=== PATIENT | female | born 1935 | race Caucasian/White ===

== ENCOUNTER → 2016-06-18 | Outpatient (CLI) | payer MEDICARE, OTHER ==
[~2016-06-18] MED LIST: ASPIRIN325 MG PO; BENAZEPRIL HCL10 MG ORAL; BENAZEPRIL HCL10 MG PO; CARDIAZEM CD240 MG ORAL; CARDIZEM CD180 MG ORAL; DIGOXIN125 MCG PO; DILTIAZEM HCL120 MG PO; FUROSEMIDE20 M1 PO; IBUPROFEN600 MG ORAL; JANUVIA100 MG ORAL; LIPITOR10 MG ORAL; METFORMIN HCL500 M1 ORAL; METOPROLOL SUC100 MG PO; METOPROLOL TART50 M1 ORAL; METOPROLOL TART50 MG ORAL; NKM; NORCO 10/3251 EA ORAL; POTASSIUM CHLO10 ME2 PO; PREDNISONE20 MG ORAL; PRILOSEC20 MG PO; TYLENOL325 MG ORAL; VALIUM5 MG ORAL; VICODIN 5-5001 EACH PO
[2016-06-18 12:33] LABS: APPEARANCE,URINE SLIGHTLY CLOUDY; KETONES,URINE NEGATIVE (NEGATIVE); LEUKOCYTE ESTERASE ,URINE 1+ (NEGATIVE); NITRITE,URINE NEGATIVE (NEGATIVE); PH,URINE 6 (4.5-8.0); PROTEIN,URINE NEGATIVE (NEGATIVE); UROBILINOGEN,URINE NORMAL MG/DL (0.0-1.0)
[2016-06-18 12:34] LABS: ALANINE AMINOTRANSFERASE 8 U/L (3-33); ALBUMIN/GLOBULIN RATIO 1.2 (1.0-2.7); ANION GAP 14 (5-15); ASPARTATE AMINO TRANSFERASE 16 U/L (5-40); CALCIUM 9.6 mg/dL (8.6-10.2); CARBON DIOXIDE 27 mEQ/L (20-30); CHLORIDE 98 mEQ/L (98-107); CHOLESTEROL 143 mg/dL (< 200); CHOLESTEROL/HDL RATIO 2.8 (3.3-4.4); CREATININE 0.7 mg/dL (0.5-0.9); HEMOLYSIS 22; LDL CHOLESTEROL (CALC.) 71 mg/dL (60-99); POTASSIUM 4.4 mEQ/L (3.4-4.9); SODIUM 139 mEQ/L (135-145); TOTAL PROTEIN 7.8 g/dL (6.6-8.7)
[2016-06-18 12:48] LABS: BASOPHILS % (AUTO) 0.9 % (0.0-2.0); EOSINOPHILS % (AUTO) 0.7 % (0.0-3.0); LYMPHOCYTES % (AUTO) 23.5 % (20.0-45.0); MEAN CORPUSCULAR HEMOGLOBIN 31.6 PG (27.0-31.0); MEAN CORPUSCULAR HGB CONC 34.7 G/DL (32.0-36.0); MEAN CORPUSCULAR VOLUME 91 FL (80-99); MEAN PLATELET VOLUME 7.6 FL (6.5-10.1); MONOCYTES % (AUTO) 9.3 % (1.0-10.0); NEUTROPHILS % (AUTO) 65.6 % (45.0-75.0); PLATELET COUNT 235 K/UL (150-450); RED BLOOD COUNT 4.52 M/UL (4.20-5.40); RED CELL DISTRIBUTION WIDTH 12.1 % (11.6-14.8); WHITE BLOOD COUNT 7.4 K/UL (4.8-10.8)
[2016-06-18 13:04] LABS: BACTERIA,URINE FEW /HPF; HEMOGLOBIN A1C 5.4 % (< 6.0); SQUAMOUS EPITHELIAL CELL,UR FEW /LPF (NONE/OCC)
== END | disposition home or self-care (01) ==
LOC: LAB 11:38
DX: E11.9 Type 2 diabetes mellitus without complications (principal); M79.7 Fibromyalgia
CPT/HCPCS: 36415; 80053; 80061; 81003; 83036; 84443; 85025

== ENCOUNTER 2016-08-30 10:35 | Emergency (ER) | payer MEDICARE, OTHER ==
[~2016-08-30] VITALS: Ht 165.1 cm; Wt 71.7 kg
[~2016-08-30 10:35] MED LIST changes: -TYLENOL325 MG ORAL
--- NOTE | 2016-08-30 11:05 | Emergency Room Report ---
History of Present Illness General Chief Complaint: Multiple Trauma/Fall Source: Patient, Medical Record Present Illness HPI Patient presents with complaints of right lower rib pain right facial discomfort And right forearm pain after a fall this morning patient reports that she was using the commode recently she has been having pain to her right leg And essentially her leg gave out and patient fell tried to grab the walker patient hit the right arm Denies any loss of consciousness denies any dizziness Denies any mid chest pain Denies any shortness of breath Allergies: Coded Allergies: WARFARIN (Unverified Adverse Reaction, Unknown, 11/28/13) Patient History Past Medical History: see triage record Pertinent Family History: none Reviewed Nursing Documentation: PMH: Agreed, PSxH: Agreed Nursing Documentation-PMH Hx Cardiac Problems: Yes Hx Hypertension: Yes Hx Pacemaker: No Hx Asthma: Yes Hx COPD: No Hx Diabetes: Yes Hx Cancer: No Hx Gastrointestinal Problems: No Hx Neurological Problems: Yes - Sciatic nerve Hx Cerebrovascular Accident: No Hx Seizures: No Review of Systems All Other Systems: negative except mentioned in HPI Physical Exam Vital Signs Date Time Temp Pulse Resp B/P Pulse Ox O2 Delivery O2 Flow Rate FiO2 08/30/16 10:45 97.9 80 16 104/65 99 Room Air Sp02 EP Interpretation: reviewed, normal General Appearance: well appearing, no apparent distress Head: normocephalic, atraumatic Eyes: bilateral eye EOMI, bilateral eye PERRL ENT: hearing grossly normal, normal pharynx Neck: supple Respiratory: lungs clear Cardiovascular #1: no edema, irregularly irregular Gastrointestinal: soft, no mass Musculoskeletal: other - Hematoma and bruising pulverize but the right forearm , tender on palpation right mid rib cage Neurologic: alert, oriented x3, responsive, 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 III-XII nml as tested Skin: other - As above Lymphatic: no adenopathy Medical Decision Making Diagnostic Impression: Primary Impression: Multiple injuries due to trauma Additional Impression: Hematoma ER Course Multiple differentials considered Patient is awake and alert Imaging study does not show any acute fractures Patient continues to do well hemodynamically baseline blood work were also appropriate and the patient is stable for close outpatient followup Labs Test 08/30/16 11:10 White Blood Count 7.2 K/UL (4.8-10.8) Red Blood Count 4.50 M/UL (4.20-5.40) Hemoglobin 13.8 G/DL (12.0-16.0) Hematocrit 41.6 % (37.0-47.0) Mean Corpuscular Volume 92 FL (80-99) Mean Corpuscular Hemoglobin 30.6 PG (27.0-31.0) Mean Corpuscular Hemoglobin Concent 33.2 G/DL (32.0-36.0) Red Cell Distribution Width 12.5 % (11.6-14.8) Platelet Count 199 K/UL (150-450) Mean Platelet Volume 8.0 FL (6.5-10.1) Neutrophils (%) (Auto) 67.2 % (45.0-75.0) Lymphocytes (%) (Auto) 23.1 % (20.0-45.0) Monocytes (%) (Auto) 8.0 % (1.0-10.0) Eosinophils (%) (Auto) 0.7 % (0.0-3.0) Basophils (%) (Auto) 1.1 % (0.0-2.0) Sodium Level 141 mEQ/L (135-145) Potassium Level 4.1 mEQ/L (3.4-4.9) Chloride Level 98 mEQ/L (98-107) Carbon Dioxide Level 27 mEQ/L (20-30) Anion Gap 16 (5-15) Blood Urea Nitrogen 16 mg/dL (7-23) Creatinine 0.7 mg/dL (0.5-0.9) Estimat Glomerular Filtration Rate mL/min (>60) Glucose Level 78 mg/dL (74-106) Calcium Level 9.4 mg/dL (8.6-10.2) EKG Diagnostic Results Rate: normal Rhythm: other - afib ST Segments: other - nonspecific st t wave changes Rhythm Strip Diag. Results EP Interpretation: yes Rate: 77 Rhythm: no PVC's, no ectopy, other - afib Other X-Ray Diagnostic Results Other X-Ray Diagnostic Results : EP Interpretation: Yes Findings: no fractures, no dislocation, other - soft tissue changes Number of Views: 2 - right forearm CT/MRI/US Diagnostic Results CT/MRI/US Diagnostic Results : Impression CT chestImpression: No acute abnormality. Specifically no evidence of significant thoracic trauma Nonspecific very faint pulmonary parenchymal groundglass opacities. 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 08/30/16 Additional Instructions: Patient is provided with the discharge instructions notified to follow up with primary doctor in the next 2-3 days otherwise return to the er with any worsening symptoms. Please note that this report is being documented using S[employer] technology. This can lead to erroneous entry secondary to incorrect interpretation by the dictating instrument. MAGNOLIA DESAI D.O. Aug 30, 2016 11:05
[2016-08-30 11:30] VITALS: BP 111/63
[2016-08-30 11:31] LABS: BASOPHILS % (AUTO) 1.1 % (0.0-2.0); EOSINOPHILS % (AUTO) 0.7 % (0.0-3.0); LYMPHOCYTES % (AUTO) 23.1 % (20.0-45.0); MEAN CORPUSCULAR HEMOGLOBIN 30.6 PG (27.0-31.0); MEAN CORPUSCULAR HGB CONC 33.2 G/DL (32.0-36.0); MEAN CORPUSCULAR VOLUME 92 FL (80-99); NEUTROPHILS % (AUTO) 67.2 % (45.0-75.0); PLATELET COUNT 199 K/UL (150-450); RED CELL DISTRIBUTION WIDTH 12.5 % (11.6-14.8); WHITE BLOOD COUNT 7.2 K/UL (4.8-10.8)
[2016-08-30 11:45] LABS: ANION GAP 16 (5-15); CALCIUM 9.4 mg/dL (8.6-10.2); CARBON DIOXIDE 27 mEQ/L (20-30); CHLORIDE 98 mEQ/L (98-107); CREATININE 0.7 mg/dL (0.5-0.9); HEMOLYSIS 13; POTASSIUM 4.1 mEQ/L (3.4-4.9); SODIUM 141 mEQ/L (135-145)
--- NOTE | 2016-08-30 11:59 | Diagnostic Imaging Report ---
Indications: PAIN Technique: Two views of the right forearm Comparison: None Findings: No acute fractures. No dislocations. No radiopaque foreign bodies Impression: Negative
--- NOTE | 2016-08-30 12:13 | Diagnostic Imaging Report ---
Clinical Indication: PAIN, right lower lobe rib pain after fall this morning Technique: Spiral acquisitions obtained through the chest. No IV contrast utilized, referring physician request. Multiplanar reconstructions generated. Total dose length product T10 mGycm. CTDIvol(s) 23 mGy Comparison: None Findings:No acute fractures are demonstrated. There is no evidence of significant soft tissue contusion. Lungs demonstrate minimal biapical parenchymal scarring. There is very faint groundglass opacity in a geographic distribution. Some atelectasis or scarring is seen in the inferior lingula. Lungs and pleural spaces otherwise clear. The aorta is somewhat ectatic, particularly in the region of the aortic arch, where the distal aortic arch is 38 mm in diameter, bordering on the not quite aneurysmal. There is a prosthetic device within the left atrial appendage. There is a left chest biventricular pacemaker. The heart is mildly enlarged. No pericardial effusion. The main and right and left pulmonary arteries are somewhat ectatic but not frankly dilated. There are granulomatous mediastinal lymph node calcifications. No mediastinal or hilar mass or adenopathy. The thyroid is somewhat prominent. No axillary or chest wall mass or adenopathy. Some macrocalcifications are seen in the right breast. The included upper abdominal viscera are unremarkable. Impression: No acute abnormality. Specifically no evidence of significant thoracic trauma Nonspecific very faint pulmonary parenchymal groundglass opacities. 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
[2016-08-30 13:35] VITALS: BP 115/66
[2016-08-30] MEDS ORDERED: TYLENOL325 MG ORAL (13:38)
[2016-08-30 14:25] VITALS: BP_SYST 105; BP_SYST 115; BP_DIAS 49; BP_DIAS 66
== END 2016-08-30 14:25 | disposition home or self-care (01) ==
LOC: EMR 11:33
DX: R07.81 Pleurodynia (principal); S50.11XA Contusion of right forearm, initial encounter; W07.XXXA Fall from chair, initial encounter; I10 Essential (primary) hypertension; Y92.89 Other specified places as the place of occurrence of the external cause; E11.9 Type 2 diabetes mellitus without complications; Z88.8 Allergy status to other drugs, medicaments and biological substances; J45.909 Unspecified asthma, uncomplicated
CPT/HCPCS: 36415; 71250; 80048; 85025; 93005; 99284

== ENCOUNTER 2017-02-28 10:53 | Outpatient (CLI) | payer MEDICARE, OTHER ==
[~2017-02-28 10:53] MED LIST changes: +TYLENOL325 MG ORAL
--- NOTE | 2017-02-28 11:47 | Diagnostic Imaging Report ---
Indication: COUGH Technique: 2 views of the chest Comparison: 09/06/2015 Findings: There is mild central bronchial wall thickening, stable, probably on the basis of senescent change or chronic bronchitis changes. No acute infiltrates, effusions, or congestion. Pleural spaces are clear. There is a left chest biventricular AICD now present. The heart size is normal. Aorta is elongated tortuous and calcified. There are degenerative changes of the thoracic spine Impression: No acute process findings as noted
== END 2017-02-28 12:53 | disposition home or self-care (01) ==
LOC: CAR 10:53
DX: Z01.818 Encounter for other preprocedural examination (principal); R05 Cough; Z95.810 Presence of automatic (implantable) cardiac defibrillator
CPT/HCPCS: 71020

== ENCOUNTER → 2017-05-02 | Outpatient (RCR) | payer MEDICARE, OTHER | END | disposition home or self-care (01) | LOC: PTY 04-19 08:30 | DX: M62.81 Muscle weakness (generalized) (principal); G60.3 Idiopathic progressive neuropathy; I10 Essential (primary) hypertension; Z95.0 Presence of cardiac pacemaker; M19.90 Unspecified osteoarthritis, unspecified site; E11.40 Type 2 diabetes mellitus with diabetic neuropathy, unspecified | CPT/HCPCS: 97110; 97140; 97162; G0283; G8978; G8979 ==

== ENCOUNTER 2017-05-30 13:45 | Outpatient (RCR) | payer MEDICARE, OTHER | END 2017-06-02 | disposition home or self-care (01) | LOC: PTY 13:45 | DX: M62.81 Muscle weakness (generalized) (principal); G60.3 Idiopathic progressive neuropathy; I10 Essential (primary) hypertension; Z95.0 Presence of cardiac pacemaker; M19.90 Unspecified osteoarthritis, unspecified site; E11.40 Type 2 diabetes mellitus with diabetic neuropathy, unspecified | CPT/HCPCS: 97035; 97110; 97140; G8981; G8982 ==

== ENCOUNTER 2018-03-17 10:53 | Outpatient (CLI) | payer MEDICARE, OTHER ==
[2018-03-17 11:41] LABS: APPEARANCE,URINE CLOUDY; BILIRUBIN, URINE NEGATIVE (NEGATIVE); GLUCOSE, URINE (UA) NEGATIVE (NEGATIVE); KETONES,URINE NEGATIVE (NEGATIVE); LEUKOCYTE ESTERASE ,URINE 3+ (NEGATIVE); NITRITE,URINE POSITIVE (NEGATIVE); PH,URINE 6 (4.5-8.0); PROTEIN,URINE 2+ (NEGATIVE); UROBILINOGEN,URINE 1 MG/DL (0.0-1.0)
[2018-03-17 11:46] LABS: COLOR,URINE YELLOW
== END 2018-03-17 12:53 | disposition home or self-care (01) ==
LOC: LAB 10:53
DX: R30.0 Dysuria (principal)
CPT/HCPCS: 81003; 87086; 87181

== ENCOUNTER 2018-07-22 12:03 | Inpatient (IN) | payer MEDICARE, OTHER ==
[~2018-07-22] VITALS: Ht 162.6 cm; Wt 74.4 kg
[2018-07-22 12:03] VITALS: BP 112/68
--- NOTE | 2018-07-22 12:13 | NUR ---
ED Nurse Note: Pt from home was brought in by ambulance due to right hip pain S/P ground level fall an hour prior ED arrival. No LOC, pt takes ASA at home. Pt is AAO x4, follows commands. No obvious dislocation at this time.
--- NOTE | 2018-07-22 12:38 | Emergency Room Report ---
History of Present Illness General Chief Complaint: Pain Source: EMS (Fredi Andrew) Present Illness HPI 83-year-old female patient presents the ER brought in by ambulance complaining of right hip and pelvis pain times a few hours. Reports that she was throwing something out in the garbage when she accidentally tripped over her walker and fell onto her right hip. Denies hitting her head or loss consciousness. Denies syncope or dizziness prior to fall. Reports pain with movement. States not take any medication for relief of symptoms. States that she takes aspirin. Denies fever, chest pain, shortness of breath. (Fredi Andrew) Allergies: Coded Allergies: FENTANYL (Verified Allergy, Unknown, 07/22/18) WARFARIN (Unverified Adverse Reaction, Unknown, 11/28/13) Patient History Past Medical History: see triage record Now: No Reviewed Nursing Documentation: PMH: Agreed; PSxH: Agreed (Fredi Andrew) Nursing Documentation-PMH Past Medical History: No History, Except For Hx Cardiac Problems: Yes - left side pacemaker Hx Hypertension: Yes Hx Pacemaker: No Hx Asthma: Yes Hx COPD: No Hx Diabetes: Yes Hx Cancer: No Hx Gastrointestinal Problems: No Hx Neurological Problems: Yes - Sciatic nerve Hx Cerebrovascular Accident: No Hx Seizures: No (Fredi Andrew) Review of Systems All Other Systems: negative except mentioned in HPI (Fredi Andrew) Physical Exam Vital Signs Date Time Temp Pulse Resp B/P (MAP) Pulse Ox O2 Delivery O2 Flow Rate FiO2 07/22/18 12:03 97.7 84 18 112/68 93 Room Air Sp02 EP Interpretation: reviewed, normal General Appearance: well appearing, no apparent distress, alert, GCS 15, non- toxic Head: normocephalic, atraumatic Eyes: bilateral eye normal inspection, bilateral eye PERRL ENT: hearing grossly normal, normal pharynx, no angioedema, normal voice, uvula midline, moist mucus membranes Neck: full range of motion Respiratory: lungs clear, normal breath sounds, no rhonchi, no respiratory distress, no accessory muscle use, no wheezing, speaking full sentences Cardiovascular #1: regular rate, rhythm, no edema Cardiovascular #2: 2+ dorsalis pedis (R), 2+ dorsalis pedis (L) Musculoskeletal: back normal, digits/nails normal, gait/station normal, normal range of motion, non-tender, no calf tenderness, pelvis stable, other - Pain with passive range of motion Psychiatric: mood/affect normal Skin: no rash (Fredi Andrew) Medical Decision Making CT Attestation Dr. Carolina is my supervising Physician whom patient management has been discussed with. (Fredi Andrew) Medicare Attestation Patient seen and examined by myself as well I do agree with the findings patient does show evidence of pubic rami fracture requiring further inpatient care The history of Alexus Brewer has been reviewed and management options for her have been examined and discussed by Joan Carolina. I have personally examined and interviewed the patient. (Joan Carolina DO) Diagnostic Impression: Primary Impression: Pelvic fracture Additional Impression: Pacemaker ER Course Pt. presents to the ED c/o hip and pelvic pain. Ddx considered but are not limited to fracture, sprain, strain, contusion, dislocation. No erythema, no warmth to touch, no fever, nontoxic appearing, low suspicion for septic joint. Soft compartments, no pulselessness, no pallor, no paresthesias, low suspicion for compartment syndrome at this time. Vital signs: are WNL, pt. is afebrile Ordered CT abdomen and pain medication. ER COURSE Provided with pain medication. CT of the pelvis shows comminuted pelvic ramus fracture with nearby pelvic hematoma. Discuss care with supervising physician Dr. Carolina, patient seen and evaluated by him, patient to be admitted. Will order labs and imaging for admission. Patient to be admitted. - Please note that this Emergency Department Report was dictated using [employer] erector and servicer technology software, occasionally this can lead to erroneous entry secondary to interpretation by the dictation equipment. Labs Test 07/22/18 14:30 White Blood Count 16.5 K/UL (4.8-10.8) Red Blood Count 4.36 M/UL (4.20-5.40) Hemoglobin 13.2 G/DL (12.0-16.0) Hematocrit 39.6 % (37.0-47.0) Mean Corpuscular Volume 91 FL (80-99) Mean Corpuscular Hemoglobin 30.3 PG (27.0-31.0) Mean Corpuscular Hemoglobin Concent 33.4 G/DL (32.0-36.0) Red Cell Distribution Width 12.9 % (11.6-14.8) Platelet Count 216 K/UL (150-450) Mean Platelet Volume 7.5 FL (6.5-10.1) Neutrophils (%) (Auto) 84.8 % (45.0-75.0) Lymphocytes (%) (Auto) 9.2 % (20.0-45.0) Monocytes (%) (Auto) 5.4 % (1.0-10.0) Eosinophils (%) (Auto) 0.3 % (0.0-3.0) Basophils (%) (Auto) 0.3 % (0.0-2.0) Urine Color Pale yellow Urine Appearance Clear Urine pH 7 (4.5-8.0) Urine Specific [place] 1.010 (1.005-1.035) Urine Protein 2+ (NEGATIVE) Urine Glucose (UA) Negative (NEGATIVE) Urine Ketones Negative (NEGATIVE) Urine Blood 2+ (NEGATIVE) Urine Nitrite Positive (NEGATIVE) Urine Bilirubin Negative (NEGATIVE) Urine Urobilinogen Normal MG/DL (0.0-1.0) Urine Leukocyte Esterase 3+ (NEGATIVE) Urine RBC 5-10 /HPF (0 - 2) Urine WBC 10-15 /HPF (0 - 2) Urine Squamous Epithelial Cells Few /LPF (NONE/OCC) Urine Bacteria Many /HPF (NONE) Sodium Level 139 MMOL/L (136-145) Potassium Level 4.2 MMOL/L (3.5-5.1) Chloride Level 103 MMOL/L (98-107) Carbon Dioxide Level 26 MMOL/L (21-32) Anion Gap 10 mmol/L (5-15) Blood Urea Nitrogen 13 mg/dL (7-18) Creatinine 0.7 MG/DL (0.55-1.30) Estimat Glomerular Filtration Rate mL/min (>60) Glucose Level 126 MG/DL (74-106) Calcium Level 8.7 MG/DL (8.5-10.1) Total Bilirubin 0.4 MG/DL (0.2-1.0) Aspartate Amino Transf (AST/SGOT) 16 U/L (15-37) Alanine Aminotransferase (ALT/SGPT) 18 U/L (12-78) Alkaline Phosphatase 97 U/L (46-116) Total Protein 7.2 G/DL (6.4-8.2) Albumin 3.4 G/DL (3.4-5.0) Globulin 3.8 g/dL Albumin/Globulin Ratio 0.9 (1.0-2.7) (Fredi Andrew) EKG Diagnostic Results Rate: normal Rhythm: NSR ST Segments: no acute changes ASA given to the pt in ED: No PA Scribe Text Ke Andrew PA-C (Fredi AndrewAInder) Rhythm Strip Diag. Results EP Interpretation: yes Rate: 80 Rhythm: NSR, no PVC's, no ectopy PA Scribe Text Ke Andrew PA-C (Fredi Andrew P.AInder) Chest X-Ray Diagnostic Results Chest X-Ray Diagnostic Results : # of Views/Limited/Complete: 1 View Indication: Chest Pain EP Interpretation: Yes PA Xray: Interpretation reviewed, by supervising MD, and agrees with findings. Interpretation: no consolidation, no effusion, no pneumothorax, no acute cardiopulmonary disease, other - Pacemaker Impression: No acute disease PA Scribe Text Ke Andrew PA-C (Fredi AndrewAInder) CT/MRI/US Diagnostic Results CT/MRI/US Diagnostic Results : Imaging Test Ordered: CT pelvis Impression Impression: Positive for severely comminuted right superior pubic ramus fracture , with significant displacement of some of the fragments. There is a large resulting pelvic hematoma, which measures 12 x 6 x 9 cm. There is also a comminuted minimally displaced right inferior pubic ramus fracture. No evidence of hip fracture. Degenerative lumbar spondylosis incidentally noted. (Fredi Andrew) Last Vital Signs Date Time Temp Pulse Resp B/P (MAP) Pulse Ox O2 Delivery O2 Flow Rate FiO2 07/22/18 12:03 97.7 84 18 112/68 93 Room Air (Fredi Andrew) Disposition: ADMITTED INPATIENT Condition: Serious Fredi Andrew Jul 22, 2018 12:38 Joan Carolina DO Jul 22, 2018 13:38
--- NOTE | 2018-07-22 14:02 | Diagnostic Imaging Report ---
Indication: Right hip pain right hip pain, trauma Technique: Noncontrast spiral acquisitions obtained through the pelvis. Multiplanar reconstructions generated. Total dose length product 490.67 mGycm. CTDIvol(s) 14.54 mGy. Dose reduction achieved using automated exposure control Comparison: None Findings: There is a severely comminuted fracture of the right superior pubic ramus. Some fragments are displaced cephalad by at least 2 bone widths. There is a minimally displaced fracture of the right inferior pubic ramus as well. There is a large hematoma inside the pelvis, some of which surrounds the displaced fracture fragments. This measures approximately 12 cm in length by 6 cm transverse by 9 cm craniocaudad. This displaces the bladder and the uterus to the left. No evidence of hip fracture. No evidence of left sided pelvic fracture or sacral fracture demonstrated. Degenerative changes of the lumbosacral junction are noted. The remainder of the visualized pelvic viscera are unremarkable. There are calcified injection granulomata in the buttocks bilaterally. Impression: Positive for severely comminuted right superior pubic ramus fracture, with significant displacement of some of the fragments. There is a large resulting pelvic hematoma, which measures 12 x 6 x 9 cm. There is also a comminuted minimally displaced right inferior pubic ramus fracture. No evidence of hip fracture. Degenerative lumbar spondylosis incidentally noted. Findings discussed by phone with Fredi Andrew in the emergency room at the time of interpretation The CT scanner at [facility] is accredited by the [employer] and the scans are performed using protocols designed to limit radiation exposure to as low as reasonably achievable to attain images of sufficient resolution adequate for diagnostic evaluation.
--- NOTE | 2018-07-22 14:40 | NUR ---
ED Nurse Note: Collected blood/urine and sent.
[2018-07-22 15:00] VITALS: BP 125/75
[2018-07-22 15:18] LABS: APPEARANCE,URINE CLEAR; BILIRUBIN, URINE NEGATIVE (NEGATIVE); COLOR,URINE PALE YELLOW; GLUCOSE, URINE (UA) NEGATIVE (NEGATIVE); KETONES,URINE NEGATIVE (NEGATIVE); LEUKOCYTE ESTERASE ,URINE 3+ (NEGATIVE); NITRITE,URINE POSITIVE (NEGATIVE); PH,URINE 7 (4.5-8.0); PROTEIN,URINE 2+ (NEGATIVE); UROBILINOGEN,URINE NORMAL MG/DL (0.0-1.0)
[2018-07-22 15:30] LABS: BASOPHILS % (AUTO) 0.3 % (0.0-2.0); EOSINOPHILS % (AUTO) 0.3 % (0.0-3.0); HEMATOCRIT 39.6 % (37.0-47.0); HEMOGLOBIN 13.2 G/DL (12.0-16.0); LYMPHOCYTES % (AUTO) 9.2 % (20.0-45.0); MEAN CORPUSCULAR VOLUME 91 FL (80-99); MONOCYTES % (AUTO) 5.4 % (1.0-10.0); NEUTROPHILS % (AUTO) 84.8 % (45.0-75.0); PLATELET COUNT 216 K/UL (150-450); RED BLOOD COUNT 4.36 M/UL (4.20-5.40); RED CELL DISTRIBUTION WIDTH 12.9 % (11.6-14.8); WHITE BLOOD COUNT 16.5 K/UL (4.8-10.8)
[2018-07-22 15:33] LABS: ANION GAP 10 mmol/L (5-15); BLOOD UREA NITROGEN 13 mg/dL (7-18); CALCIUM 8.7 MG/DL (8.5-10.1); CARBON DIOXIDE 26 MMOL/L (21-32); CHLORIDE 103 MMOL/L (98-107); CREATININE 0.7 MG/DL (0.55-1.30); POTASSIUM 4.2 MMOL/L (3.5-5.1); SODIUM 139 MMOL/L (136-145)
[2018-07-22 15:39] LABS: ALANINE AMINOTRANSFERASE 18 U/L (12-78); ALBUMIN 3.4 G/DL (3.4-5.0); ALBUMIN/GLOBULIN RATIO 0.9 (1.0-2.7); ALKALINE PHOSPHATASE 97 U/L (46-116); ASPARTATE AMINO TRANSFERASE 16 U/L (15-37); BILIRUBIN,TOTAL 0.4 MG/DL (0.2-1.0)
[2018-07-22] MEDS ORDERED: Morphine Sulfate 4mg/ml Inj (IV USE ONLY) IVP PRN (15:45)
[2018-07-22] MEDS ORDERED: Zolpidem 5mg tab ORAL PRN (15:45)
[2018-07-22] MEDS ORDERED: Milk of Magnesia 30ml Ud ORAL PRN (15:45)
--- NOTE | 2018-07-22 16:12 | History & Physical ---
History and Physical History & Physicial HP DICTATED #[id number] Justin Billingsley MD Jul 22, 2018 16:12
--- NOTE | 2018-07-22 16:52 | Cardiology Progress Note ---
Assessment/Plan Assessment/Plan [id number] full note didcated dcm chronic chf icd knox afib perm hs of LAST occlusion pelvic hematoma diplace pubic ramus fx Objective Last 24 Hour Vital Signs Date Time Temp Pulse Resp B/P (MAP) Pulse Ox O2 Delivery O2 Flow Rate FiO2 07/22/18 15:00 98.2 77 20 125/75 95 Room Air 07/22/18 12:03 97.7 18 112/68 93 Room Air 07/22/18 12:03 97.7 84 18 112/68 93 Room Air Laboratory Tests Test 07/22/18 14:30 White Blood Count 16.5 K/UL (4.8-10.8) H Red Blood Count 4.36 M/UL (4.20-5.40) Hemoglobin 13.2 G/DL (12.0-16.0) Hematocrit 39.6 % (37.0-47.0) Mean Corpuscular Volume 91 FL (80-99) Mean Corpuscular Hemoglobin 30.3 PG (27.0-31.0) Mean Corpuscular Hemoglobin Concent 33.4 G/DL (32.0-36.0) Red Cell Distribution Width 12.9 % (11.6-14.8) Platelet Count 216 K/UL (150-450) Mean Platelet Volume 7.5 FL (6.5-10.1) Neutrophils (%) (Auto) 84.8 % (45.0-75.0) H Lymphocytes (%) (Auto) 9.2 % (20.0-45.0) L Monocytes (%) (Auto) 5.4 % (1.0-10.0) Eosinophils (%) (Auto) 0.3 % (0.0-3.0) Basophils (%) (Auto) 0.3 % (0.0-2.0) Urine Color Pale yellow Urine Appearance Clear Urine pH 7 (4.5-8.0) Urine Specific [place] 1.010 (1.005-1.035) Urine Protein 2+ (NEGATIVE) H Urine Glucose (UA) Negative (NEGATIVE) Urine Ketones Negative (NEGATIVE) Urine Blood 2+ (NEGATIVE) H Urine Nitrite Positive (NEGATIVE) H Urine Bilirubin Negative (NEGATIVE) Urine Urobilinogen Normal MG/DL (0.0-1.0) Urine Leukocyte Esterase 3+ (NEGATIVE) H Urine RBC 5-10 /HPF (0 - 2) H Urine WBC 10-15 /HPF (0 - 2) H Urine Squamous Epithelial Cells Few /LPF (NONE/OCC) Urine Bacteria Many /HPF (NONE) H Sodium Level 139 MMOL/L (136-145) Potassium Level 4.2 MMOL/L (3.5-5.1) Chloride Level 103 MMOL/L (98-107) Carbon Dioxide Level 26 MMOL/L (21-32) Anion Gap 10 mmol/L (5-15) Blood Urea Nitrogen 13 mg/dL (7-18) Creatinine 0.7 MG/DL (0.55-1.30) Estimat Glomerular Filtration Rate mL/min (>60) Glucose Level 126 MG/DL (74-106) H Calcium Level 8.7 MG/DL (8.5-10.1) Total Bilirubin 0.4 MG/DL (0.2-1.0) Aspartate Amino Transf (AST/SGOT) 16 U/L (15-37) Alanine Aminotransferase (ALT/SGPT) 18 U/L (12-78) Alkaline Phosphatase 97 U/L (46-116) Total Protein 7.2 G/DL (6.4-8.2) Albumin 3.4 G/DL (3.4-5.0) Globulin 3.8 g/dL Albumin/Globulin Ratio 0.9 (1.0-2.7) Jean Carlos Salazar MD Jul 22, 2018 16:52
[2018-07-22 17:00] VITALS: BP 98/62
--- NOTE | 2018-07-22 17:00 | Diagnostic Imaging Report ---
Indication: Chest pain Technique: One view of the chest Comparison: 02/28/2017 Findings: The heart size is normal. Lungs and pleural spaces are clear. The aorta is elongated tortuous and calcified. There is a left chest biventricular AICD. No significant interim change Impression: Findings as noted. No acute process
--- NOTE | 2018-07-22 17:01 | NUR ---
ED Nurse Note: Report given to Rafia ZHU of telemetry unit. Room is not ready at this time. ER charge nurse notified.
[2018-07-22 18:17] VITALS: BP 87/56
--- NOTE | 2018-07-22 18:20 | NUR ---
NURSE NOTES: Received patient from ER. Patient alert and oriented x4. Received report from MARKO Marshall. Patient's skin assessed and there were not any skin issues noted. Patient oriented to room. Bed in the lowest position and call light within reach. Patient's IV patent and intact. I will continue to monitor the patient and implement care.
--- NOTE | 2018-07-22 18:30 | History and Physical Report ---
DATE OF ADMISSION: 07/22/2018 CHIEF COMPLAINT: The patient tripped and fell and developed a pelvic fracture. HISTORY OF PRESENT ILLNESS: This is an 83-year-old, female, who was walking with a walker outside and then she tripped and fell. She was helped to wheelchair and transferred back home and then she was brought into the hospital because she could not walk. CT scan was done which showed severe comminuted right superior pubic fracture with significant displacement of some of the fragments. There was a large resulting pelvic hematoma measuring 12 x 6 x 9 centimeter. There was also comminuted minimally displaced right superior pubic ramus fracture. There was no evidence of hip fracture. The patient is being admitted for further care. PAST MEDICAL HISTORY: Includes history of diabetes mellitus, COPD with multiple COPD exacerbation, pneumonia, history of hypertension, and arthritis. The patient has a history of atrial fibrillation status post Watchman device insertion. She has not been on anticoagulation MEDICATIONS: Reviewed in the EMR. SOCIAL HISTORY: The patient lives at home. No history of smoking or alcohol abuse. Her closest family is a sister who was actually at bedside. REVIEW OF SYSTEMS: Noncontributory. PHYSICAL EXAMINATION: GENERAL: The patient is an elderly female, in no acute distress. VITAL SIGNS: Blood pressure is 112/68, pulse 84, temperature 97.7, respiratory rate is 18. HEENT: [place] conjunctivae. Anicteric sclerae. NECK: Supple. LUNGS: Clear to auscultation. HEART: S1, S2 without murmurs or rubs. ABDOMEN: Soft, nontender. EXTREMITIES: No cyanosis or edema. LABORATORY AND DIAGNOSTIC DATA: CBC shows a WBC 16,500 with hematocrit is 39.6, hemoglobin is 13.2, platelets 216,000. UA shows 1 to 2+ protein, 5 to 10 rbc's, 10 to 15 wbc's per high-power field, and many bacteria. ASSESSMENT: This is an 83-year-old female, status post trip and fall resulting in pelvic fracture. She has also urinary tract infection. She has history of COPD, diabetes, arthritis, hypertension. PLAN: The patient will be admitted to telemetry. She will be seen by Dr. Gupta, Orthopaedic consultation. She will be on antibiotics. Her medications will be adjusted. The patient will be also seen by social service technician Dr. Ngo for clearance. We also ask Dr. Luna to see this patient. Thank you very much. Justin Billingsley M.D. DR: Brenda JOB#: [id number] CC:
[2018-07-22] MEDS ORDERED: PAMELOR10 MG ORAL (18:51)
[2018-07-22] MEDS ORDERED: CARTIA XT300 MG ORAL (18:51)
[2018-07-22] MEDS ORDERED: GABAPENTIN600 MG ORAL (18:51)
[2018-07-22] MEDS ORDERED: JANUMET XR 50-1 EACH ORAL (18:51)
--- NOTE | 2018-07-22 19:19 | NUR ---
HAND-OFF: Report given to MARKO Marshall.
--- NOTE | 2018-07-22 19:20 | NUR ---
NURSE NOTES: Report received from MARKO Morataya. Pt is lying comfortably in semi fowlers with no signs of distress. Pt is A+Ox4, denies pain/ SOB. IV site is patent, intact, and running fluids at prescribed rate. Respirations are even and unlabored on room air. Bed is at lowest position, brakes engaged, siderails x2, bed alarm on, and call light within reach. Pt is in stable condition at this time; will continue to monitor.
[2018-07-22 19:30] VITALS: BP 79/54
--- NOTE | 2018-07-22 19:30 | NUR ---
NURSE NOTES: Pt's blood pressure is 79/54. Pt is asymptomatic. Called Dr. Ngo who ordered 200 ml bolus of NS and to continue fluids @ 100 ml/hr after finishing bolus. Orders noted and carried out. Will continue to monitor pt for signs of hypovolemia.
--- NOTE | 2018-07-22 20:10 | NUR ---
NURSE NOTES: Pt and family state that she does not take digoxin anymore. She also has discrepencies on one other medication. Also observed there is no insulin coverage/ accucheck order. Left message with Dr. Billingsley regarding these medications; awaiting response.
[2018-07-22] MEDS: Heparin 5000 units/ml inj SUBQ SCH (20:23)
[2018-07-22] MEDS: Metoprolol Tartrate 50mg tab ORAL SCH (20:23)
[2018-07-22] MEDS ORDERED: Albuterol/Ipratropium 3ml neb HHN PRN (21:30)
--- NOTE | 2018-07-22 22:00 | Consultation ---
DATE OF CONSULTATION: 07/22/2018 CARDIOLOGY CONSULTATION: CONSULTING PHYSICIAN: Jean Carlos Ngo M.D. REFERRING PHYSICIAN: Justin Billingsley M.D. REASON FOR REFERRAL: Possible preoperative evaluation. HISTORY OF PRESENT ILLNESS: This is an unfortunate female who is known to me from several years in the office. The patient apparently had a nonsyncopal fall and hit her right pelvis and is suffering from pelvic fracture with a hematoma and this consultation requested by Dr. Billingsley for evaluation of possible need of surgery. The patient absolutely denies any chest pain. No PND. No orthopnea. Uses two pillows. There is no dizziness, lightheadedness on standing. No heart pounding or palpitation. Main issue is that she is experiencing pain in the pelvis area and down the right inner thigh. PAST MEDICAL HISTORY: Positive for permanent atrial fibrillation, congestive heart failure, cardiomyopathy nonischemic, history of systemic hypertension, diabetes mellitus, chronic congestive heart failure. She has a history of vitamin D deficiency, sciatica, sick sinus syndrome, status post permanent pacemaker implantation that was subsequently upgraded to a defibrillator, venous insufficiency. PAST SURGICAL HISTORY: She has a history of a perforated right varicose vein on the right side and left bundle-branch conduction defect. She had a cardiac catheterization at [facility] several years ago that showed no evidence of coronary disease. Essentially normal catheterization and she had lumbar stenosis as well. SOCIAL HISTORY: No cigarette smoking. No alcohol. No drugs. She lives at home with her sister. REVIEW OF SYSTEMS: GASTROINTESTINAL: She denies any nausea or vomiting at this time although she was nauseated few days ago. No diarrhea. No constipation. No bloody or black stool. GENITOURINARY: Does not have discomfort on urination. PULMONARY: She does have some coughing. No wheezing. CONSTITUTIONAL: No fever, chills, or night sweats. NEUROLOGIC: Negative. MUSCULOSKELETAL: She has pain as mentioned in the pelvis and down the right leg. PHYSICAL EXAMINATION: GENERAL: Shows an elderly female, in no respiratory distress. She appears somewhat pale than her usual. NECK: Supple. No jugular venous distention. LUNGS: Clear to auscultation and percussion. CARDIAC: Irregularly irregular. Not tachycardic. Not bradycardic. No heaves or thrills noted. ABDOMEN: Soft, obese. Positive bowel sounds. There is some tenderness that seems to be elicited in the right side on palpation of the abdomen. No guarding. No rigidity. EXTREMITIES: There is no clubbing, cyanosis, or edema. NEUROLOGIC: She is awake, alert, responsive, in no respiratory distress. LABORATORY AND DIAGNOSTIC DATA: White count of 16.5, hemoglobin 13.2, and platelet count 216. Sodium is 139, potassium 4.2, chloride 103, bicarb 26, BUN 13, creatinine 0.7, glucose of 126. Liver function tests are all normal. She has 10 to 15 wbc's, 5 to 10 rbc's, 3+ leukocyte esterase. Imaging studies performed including CT scan of the pelvis that shows severely comminuted fracture of the right superior pubic ramus. Some frag ments are displaced cephalad at least minimally displaced right inferior pubic ramus. Got a large hematoma inside the pelvis 12 cm in size. No evidence of hip fractures. No evidence of left-sided pelvic fracture or sacral fractures. There is lumbar spondylosis. No electrocardiogram is available for review. ASSESSMENT AND PLAN: 1. Non-syncopal fall. 2. Pubic ramus fracture with displacement. 3. Hematoma. 4. Permanent atrial fibrillation. 5. Chronic congestive heart failure. 6. Dilated cardiomyopathy. 7. Diabetes mellitus. 8. History of intracardiac defibrillator placement. Dr. Billingsley, this patient was seen in cardiac consultation. The patient does not seem to have any signs or symptoms of coronary syndrome or congestive heart failure. She does have a history of cardiomyopathy however and her last echocardiogram in the office showed an ejection fraction of 40%. She does not have any significant valvular regurgitation moderate tricuspid regurgitation at that time. If surgery is needed, she may be at higher than normal risk of perioperative cardiac morbidity compared to a normal person; however, this surgery depending on the degree may not be contraindicated. She takes Lasix only once a week and that may be continued or added depending on the amount of fluid she may require around the time of surgery. She should otherwise have a digoxin level. Her aspirin will be on hold. She is not on anticoagulation because she had a left atrial appendage occlusive procedure performed number of years ago. Her other medications should be continued including her Cardizem CD that she takes 300 mg for heart rate control. She is on diabetic medication and she is on metoprolol-XL 100 mg a day that will be continued as continued as well. Further recommendations as become necessary. Jean Carlos Ngo M.D. DR: JAYLEN JOB#: [id number] CC:
[2018-07-22] MEDS: Piperacillin/Tazobactam 3.375 GM in NS 110 ML IVPB SCH (22:44)
--- NOTE | 2018-07-22 23:07 | NUR ---
NURSE NOTES: Made Dr. Luna aware of ABG results. Placed patient on 2 L NC and pt has 02 sat of 95%. No new orders given.
[2018-07-23] VITALS: BP 91/57
[2018-07-23 04:00] VITALS: BP 123/51
[2018-07-23] MEDS: Piperacillin/Tazobactam 3.375 GM in NS 110 ML IVPB SCH (05:28)
[2018-07-23] MEDS: NovoLOG Insulin Flexpen SUBQ SCH ×4 (05:34→21:00)
--- NOTE | 2018-07-23 06:39 | NUR ---
NURSE NOTES: Left second message with Dr. Pineda regarding whether patient is having surgery today and whether pt should be NPO; awaiting response.
--- NOTE | 2018-07-23 07:06 | NUR ---
HAND-OFF: Report given to MARKO Morataya. Pt is in stable condition; plan of care endorsed.
--- NOTE | 2018-07-23 07:30 | NUR ---
NURSE NOTES: I received the patient resting in bed. Patient does not display any signs of distress or SOB. Bed in the lowest position and call light within reach. I will continue to monitor the patient and implement care.
--- NOTE | 2018-07-23 07:52 | NUR ---
CASE MANAGEMENT:REVIEW 83 YR OLD FEMALE BIBA FROM HOME CC: S/P GROUND LEVEL FALL...RT HIP PAIN PMH: PACEMAKER. HTN SI: PELVIC FRACTURE 97.7 80 18 98/62 93% ON RA WBC+16.5 IS: TYLENOL PO CT PELVIS CXR URINE CX : TO TELEMETRY PLAN: IV ZOSYN Q8HRS IVF@100/HR CARDIAC CONSULT PULMONARY CONSULT INTERQUAL CRITERIA MET
[2018-07-23 08:00] VITALS: BP 92/63
--- NOTE | 2018-07-23 08:25 | Consultation ---
Consult Note Consult Note 83 yo female with mechanical fall at home yesterday. tripped over the wheel of her walker going down the driveway to throw the garbage out. Rt superior and inferior pubic rami fracture no surgery needed. toe touch WB only x4 weeks. may need rehab on d/c Xochilt Medeiros Jul 23, 2018 08:25
[2018-07-23] MEDS: dilTIAZem HCl CD 240mg cap ORAL SCH (09:00)
[2018-07-23] MEDS ORDERED: Digoxin 0.125mg tab ORAL SCH (09:00)
[2018-07-23] MEDS: Metoprolol Tartrate 50mg tab ORAL SCH ×2 (09:00→21:14)
[2018-07-23] MEDS: metFORMIN 500mg tab ORAL SCH ×2 (09:26→17:11)
[2018-07-23] MEDS: sitaGLIPtin 50mg tab ORAL SCH (09:27)
[2018-07-23] MEDS: Heparin 5000 units/ml inj SUBQ SCH ×2 (09:29→21:14)
[2018-07-23 09:47] LABS: CHOLESTEROL 92 MG/DL (< 200); HDL CHOLESTEROL 31 MG/DL (40-60); TRIGLYCERIDES 86 MG/DL (30-150)
[2018-07-23 12:00] VITALS: BP 107/62
[2018-07-23] MEDS: cefTRIAXone 1 GM in D5W 55 ML IVPB SCH (15:18)
[2018-07-23 16:00] VITALS: BP 104/63
--- NOTE | 2018-07-23 16:15 | NUR ---
HAND-OFF: Report given to MARKO Pan.
--- NOTE | 2018-07-23 16:30 | Consultation ---
DATE OF CONSULTATION: 07/23/2018 HISTORY OF PRESENT ILLNESS: The patient is a very pleasant, 83-year-old female, who is known to me from the past. She is a patient of ours in the outpatient setting and we were called to see her in the hospital after mechanical fall that took place yesterday. The patient indicates that she was walking down her driveway with a walker to throw garbage in the bin and she stepped away from the walker to bring the bag to the bin, she tripped on the wheeled walker, had a mechanical fall in the driveway. She had immediate onset of the pain and was transferred to [facility] ER where she was noted to have a right superior and inferior pubic rami fracture. She has been placed on bed rest. Orthopedic consult has been called for further evaluation. She complains of pain in the right-sided pelvis. She typically is independent with activities and uses a walker occasionally. We have been seeing her in the office for some knee arthritis which has been bothering her; however currently she does not complain of any additional knee pain. She feels that her knee is at baseline level of discomfort. Her main pain is around the lower pelvis on the right side. PAST MEDICAL HISTORY: Diabetes, COPD, pneumonia, hypertension, atrial fibrillation. MEDICATIONS: Please see chart. SOCIAL HISTORY: She lives at home. She lives with her sister, they do have home nurses that come periodically. She normally ambulates independently although she uses a walker occasionally if her knees are bothering her. REVIEW OF SYSTEMS: The patient denies any fever, chills, headaches, dizziness chest pain, shortness of breath or syncopal type episodes. She does complain of right-sided pelvic pain. PHYSICAL EXAMINATION: GENERAL: She is very pleasant. She is alert. She is oriented. She gives an accurate count of history based on the other reports in the chart. She complains of right lower pelvic pain and she has some tenderness in this area although there is no obvious bruising, shows some right-sided rib tenderness although no obvious bruising. She is breathing comfortably on nasal cannula. She has baseline level of discomfort for the knee. No major swelling. No bruising. She is able to flex and extend although movement of the knees and hips does cause pain to the pelvic region. There is no tenderness to the right or left hip. There is no leg length discrepancy or rotational leg. She has no open wounds or lacerations. There is no skin breakdown. No major swelling. IMAGING: CT scan is reviewed. There is a comminuted right superior pubic rami fracture and a nondisplaced inferior pubic rami fracture on the right. There is no evidence of hip fracture. IMPRESSION: 1. Comminuted right superior pubic rami fracture. 2. Nondisplaced right inferior pubic rami fracture. 3. Baseline bilateral knee arthritis, previously she was in the outpatient setting. DISCUSSION: I discussed the patient my findings. This is going to go onto healing. There is no need for surgery in this case however we will need to keep her toe-touch weightbearing for about 4 weeks. After about 4 weeks, she will be able to progress her to towards full weightbearing. With regards to the knees, she still some pain in this area and we did discuss proceeding with treatment in that respect on an outpatient basis when she is discharged from the hospital, she is in agreement. We will have physical therapy see her. They are able to walk her. She understands that she may need short-term rehabilitation stay given her functional limitations after this fall. She is looking forward to working with physical therapy and getting up out of bed. All questions have been answered and we will allow the patient to eat. She does not need to be NPO as there is no planned surgery. We will ensure she has adequate pain medication ordered and we will ask physical therapy to work with her. Thank you for allowing me to participate in the care of this patient. If there are any questions, concerns, please do not hesitate to contact. Pj Gupta M.D. Rosanna Almodovar DR: Caroline JOB#: [id number] CC: LUIS
--- NOTE | 2018-07-23 17:15 | Consultation ---
DATE OF CONSULTATION: 07/23/2018 INFECTIOUS DISEASE CONSULTATION: CONSULTING PHYSICIAN: Augusto Billingsley M.D. PRIMARY ATTENDING: Justin Billingsley M.D. REASON FOR CONSULT: UTI. HISTORY OF PRESENT ILLNESS: This is an 83-year-old female admitted yesterday. The patient had a fall in the right hip and came here with hip pain. This was why the patient had right pelvic fracture and hematoma. The patient also had pyuria and leukocytosis. PAST MEDICAL HISTORY: Significant for diabetes mellitus, hypertension, COPD, sciatic pain, chronic CHF. Has a permanent pacemaker that was subsequently upgraded to a defibrillator. PAST SURGICAL HISTORY: Has history of cardiac catheterization, history of perforated right varicose vein, right lumbar stenosis. SOCIAL HISTORY: No history of alcohol, drug abuse, or smoking. Single. Has no children. Lives with sister. ALLERGIES: Allergic to fentanyl and warfarin. MEDICATIONS: Getting aspirin, atorvastatin, diltiazem, metformin, Januvia, insulin, Zosyn, albuterol ipratropium inhaler, metoprolol, heparin, Tylenol, Leggett, milk of magnesia, Ambien. REVIEW OF SYSTEMS: No fever. No chills. No coughing. No nausea. No vomiting. No diarrhea. No problem passing urine. Some pain in the right pelvic area. PHYSICAL EXAMINATION: VITAL SIGNS: Temperature 97.2, pulse 80, blood pressure is 92/63. GENERAL APPEARANCE: No acute distress. HEAD AND NECK: No oral lesion. HEART: Normal rate. LUNGS: Clear. ABDOMEN: Soft, nontender. EXTREMITIES: Has no edema. NEUROLOGIC: Awake, alert, oriented x3. LABORATORY AND DIAGNOSTIC DATA: Sodium 139, potassium 4.2, chloride 103, bicarbonate 26, BUN 13, creatinine 0.7, glucose 126. WBC 16.5, hemoglobin 13.2, hematocrit 39.6, platelet 216. Blood gas showed pO2 55.8, pCO2 33.8. UA was positive for nitrites, wbc's of 10 to 15, leukocyte esterase positive. Urine culture is pending. Chest x-ray was negative. Pelvic CT scan showed right superior pubic ramus fracture, pelvic hematoma 12 x 6.9 cm. IMPRESSION: Pyuria, likely UTI. The patient is status post fall and has right pubic ramus fracture, pelvic hematoma, has diabetes, hypertension, COPD. Has hypoxemia, chronic CHF. She is status post pacemaker. RECOMMENDATION: Change Zosyn to ceftriaxone. We will follow up the cultures. At the end of my exam, I thank Dr. Justin Billingsley for involving me in the care of this patient. Augusto Billingsley M.D. DR: ROBERT JOB#: [id number] CC:
[2018-07-23] MEDS: HYDROcodone/Acetamin 10/325 tab ORAL PRN (18:41)
--- NOTE | 2018-07-23 19:00 | NUR ---
NURSE NOTES: RELAYED MG LEVEL TO DR TANG RECEIVED ORDER FOR MAG SULFATE 2GM IV X1, ORDERED
--- NOTE | 2018-07-23 19:05 | NUR ---
HAND-OFF: Report given to SATNAM ZHU.
--- NOTE | 2018-07-23 19:35 | NUR ---
NURSE NOTES: Report received from MARKO Pan. Pt is lying comfortably in semi fowlers with no signs of distress. Pt is A+Ox4, complaining of mild pain, but no SOB. IV site is patent, intact, and running fluids at prescribed rate. Respirations are even and unlabored on 2 L NC. Bed is at lowest position, brakes engaged, siderails x2, bed alarm on, and call light within reach. Pt is in stable condition at this time; will continue to monitor.
--- NOTE | 2018-07-23 19:39 | General Progress Note ---
Assessment/Plan Problem List: (1) Pelvic fracture ICD Codes: S32.9XXA - Fracture of unspecified parts of lumbosacral spine and pelvis, initial encounter for closed fracture SNOMED: 92969080 (2) Reactive airway disease ICD Codes: J45.909 - Unspecified asthma, uncomplicated SNOMED: 827451284297 (3) DJD (degenerative joint disease) of lumbar spine ICD Codes: M47.816 - Lumbar spondylosis SNOMED: 718136960 (4) HTN (hypertension) ICD Codes: I10 - Hypertension SNOMED: 70096075 (5) Inability to ambulate due to multiple joints ICD Codes: R26.2 - Inability to ambulate due to multiple joints SNOMED: 447704292 (6) Atrial fibrillation ICD Codes: I48.91 - Atrial fibrillation SNOMED: 19286632 (7) DM (diabetes mellitus) ICD Codes: E11.9 - Diabetes mellitus SNOMED: 96724821 Assessment/Plan pain meds PT Pulm and cardio F/U follow labs will need rehab Subjective Allergies: Coded Allergies: FENTANYL (Verified Allergy, Unknown, 07/22/18) WARFARIN (Unverified Adverse Reaction, Unknown, 11/28/13) Subjective feels ok Objective Last 24 Hour Vital Signs Date Time Temp Pulse Resp B/P (MAP) Pulse Ox O2 Delivery O2 Flow Rate FiO2 07/23/18 16:00 97.2 80 18 104/63 (77) 98 07/23/18 15:15 80 07/23/18 12:00 97.2 80 18 107/62 (77) 98 07/23/18 11:45 80 07/23/18 09:57 97.2 07/23/18 09:00 Room Air 07/23/18 09:00 80 92/63 07/23/18 09:00 80 107/62 07/23/18 08:00 97.2 80 20 92/63 (73) 95 07/23/18 07:37 93 Nasal Cannula 2.0 28 07/23/18 07:37 80 07/23/18 07:37 Nasal Cannula 2.0 28 07/23/18 04:00 80 07/23/18 04:00 97.8 81 17 123/51 (75) 92 07/23/18 00:00 80 07/23/18 00:00 96.8 83 16 91/57 (68) 97 07/22/18 23:25 94 Nasal Cannula 2.0 28 07/22/18 23:25 Nasal Cannula 2.0 28 07/22/18 20:23 84 79/54 07/22/18 20:00 80 07/22/18 20:00 Room Air Intake and Output 07/22/18 07/23/18 19:00 07:00 Intake Total 0 ml Output Total 750 ml Balance 0 ml -750 ml Intake Oral 0 ml Output Urine Total 750 ml Laboratory Tests 07/22/18 21:18: Arterial Blood pH 7.462H, Arterial Blood Partial Pressure CO2 33.6L, Arterial Blood Partial Pressure O2 65.8L, Arterial Blood HCO3 23.5, Arterial Blood Oxygen Saturation 92.8L, Arterial Blood Base Excess 0.1, Gordon Test Positive 07/23/18 06:44: Hemoglobin A1c 5.8, Magnesium Level 1.6L, Troponin I 0.001, Triglycerides Level 86, Cholesterol Level 92, LDL Cholesterol 48, HDL Cholesterol 31L, Cholesterol/ HDL Ratio 3.0L Height (Feet): 5 Height (Inches): 4.00 Weight (Pounds): 164 Cardiovascular: normal rate Respiratory/Chest: lungs clear Abdomen: soft Edema: no edema noted Generalized Justin Billingsley MD Jul 23, 2018 19:39
[2018-07-23 20:00] VITALS: BP 120/61
--- NOTE | 2018-07-23 20:09 | Consultation ---
Consult Note Assessment/Plan DICT # [id number] Ethan Luna MD Jul 23, 2018 20:09
--- NOTE | 2018-07-23 20:09 | Cardiology Progress Note ---
Assessment/Plan Assessment/Plan 1. Non-syncopal fall. 2. Pubic ramus fracture with displacement. 3. Hematoma. 4. Permanent atrial fibrillation. 5. Chronic congestive heart failure. 6. Dilated cardiomyopathy. 7. Diabetes mellitus. 8. History of intracardiac defibrillator placement. 9. hypotension 10. UTI? bp was lwo lst ntie ivf admistered tele sinus d/w pulm hr controlled not on anticoag as has LAST occlusion watch hgb post hematoma Subjective Cardiovascular: Denies: chest pain, lightheadedness Respiratory: Denies: shortness of breath Gastrointestinal/Abdominal: Reports: abdominal pain Genitourinary: Denies: burning Objective Last 24 Hour Vital Signs Date Time Temp Pulse Resp B/P (MAP) Pulse Ox O2 Delivery O2 Flow Rate FiO2 07/23/18 16:00 97.2 80 18 104/63 (77) 98 07/23/18 15:15 80 07/23/18 12:00 97.2 80 18 107/62 (77) 98 07/23/18 11:45 80 07/23/18 09:57 97.2 07/23/18 09:00 Room Air 07/23/18 09:00 80 92/63 07/23/18 09:00 80 107/62 07/23/18 08:00 97.2 80 20 92/63 (73) 95 07/23/18 07:37 93 Nasal Cannula 2.0 28 07/23/18 07:37 80 07/23/18 07:37 Nasal Cannula 2.0 28 07/23/18 04:00 80 07/23/18 04:00 97.8 81 17 123/51 (75) 92 07/23/18 00:00 80 07/23/18 00:00 96.8 83 16 91/57 (68) 97 07/22/18 23:25 94 Nasal Cannula 2.0 28 07/22/18 23:25 Nasal Cannula 2.0 28 07/22/18 20:23 84 79/54 General Appearance: alert Neck: supple Respiratory/Chest: lungs clear Abdomen: tender Extremities: no swelling Intake and Output 07/22/18 07/23/18 19:00 07:00 Intake Total 0 ml Output Total 750 ml Balance 0 ml -750 ml Intake Oral 0 ml Output Urine Total 750 ml Laboratory Tests Test 07/22/18 21:18 07/23/18 06:44 Arterial Blood pH 7.462 (7.350-7.450) Arterial Blood Partial Pressure CO2 33.6 mmHg (35.0-45.0) L Arterial Blood Partial Pressure O2 65.8 mmHg (75.0-100.0) L Arterial Blood HCO3 23.5 mmol/L (22.0-26.0) Arterial Blood Oxygen Saturation 92.8 % (95-100) L Arterial Blood Base Excess 0.1 (-2-2) Gordon Test Positive Hemoglobin A1c 5.8 % (4.3-6.0) Magnesium Level 1.6 MG/DL (1.8-2.4) L Troponin I 0.001 ng/mL (0.000-0.056) Triglycerides Level 86 MG/DL (30-150) Cholesterol Level 92 MG/DL (< 200) LDL Cholesterol 48 mg/dL (<100) HDL Cholesterol 31 MG/DL (40-60) L Cholesterol/HDL Ratio 3.0 (3.3-4.4) L Microbiology Date/Time Source Procedure Growth Status 07/22/18 14:30 Urine,Clean Catch Urine Culture - Preliminary Resulted Jean Carlos Ngo MD Jul 23, 2018 20:09
[2018-07-24] VITALS: BP 109/60
--- NOTE | 2018-07-24 | Consultation ---
DATE OF CONSULTATION: 07/23/2018 PULMONARY CONSULTATION CONSULTING PHYSICIAN: Ethan Luna M.D. REFERRING PHYSICIAN: Justin Billingsley M.D. REASON FOR CONSULTATION: COPD management. HISTORY OF PRESENT ILLNESS: The patient is a very pleasant 83-year-old female with a history of COPD versus asthmatic bronchitis, who presented with a nonsyncopal fall and pelvic fracture. The patient has also history of CHF with ischemic cardiomyopathy, permanent atrial fibrillation, diabetes, sciatica, sick sinus syndrome, pacemaker, and defibrillator. She has been admitted multiple times for COPD exacerbations, but she is not on an outpatient inhaler regimen. She was seen by Dr. Ruiz in the past, but did not follow up with him for PFTs and states that they have been fine. She has a mild nonproductive cough, it is not daily. She denies any wheezing. She states that she has previously been told she has asthmatic bronchitis. Currently, she has a mild nonproductive cough. No shortness of breath. No fevers, chills, or chest pain. Her main complaint is hip pain. She is saturating well on room air to 2 L. 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 PAST MEDICAL HISTORY: 1. COPD versus asthmatic bronchitis. 2. CHF with ischemic cardiomyopathy. 3. Sick sinus syndrome with status post pacemaker, defibrillator. 4. Permanent AFib. 5. Diabetes. 6. Hypertension. 7. Vitamin D deficiency. 8. Sciatica. PAST SURGICAL HISTORY: 1. Perforated varicose vein. 2. Cardiac catheterization. ALLERGIES: Fentanyl and warfarin. MEDICATIONS: Prior to admission medications reviewed. Current medications reviewed. SOCIAL HISTORY: No tobacco, alcohol, or drug use. Supportive family. FAMILY HISTORY: Noncontributory. REVIEW OF SYSTEMS: Negative other than history of present illness. PHYSICAL EXAMINATION: VITAL SIGNS: Temperature 97.2, pulse 80, blood pressure 107/62, respiratory rate 18, and 99% on room air. GENERAL: This is a well-developed and well-nourished female, in no acute distress. Awake, alert, and oriented x3. HEENT: Normocephalic and atraumatic. Oropharynx is clear. Moist mucous membranes. NECK: Supple without lymphadenopathy or JVD. CHEST: Clear. HEART: Regular. ABDOMEN: Benign. Tenderness is noted. EXTREMITIES: No cyanosis, clubbing, or edema. ANCILLARY DATA: White count 16.5, hemoglobin 13.2, and platelet count 216,000. ABG, 7.46/33/65/23. Sodium 139, potassium 4.2, chloride 103, bicarbonate 26, BUN 13, creatinine 0.7. Glucose 126, hemoglobin A1c 5.8, calcium 8.7, magnesium 1.6, total bilirubin 0.6. AST 16, ALT 18, alkaline phosphatase 97. Troponin negative. Total protein 7.2, albumin 3.4, globulin 3.8. Triglyceride 86, cholesterol 92, LDL 48, HDL 31. Urinalysis, 2+ blood and positive nitrite. Urine culture pending. IMAGING: Pelvic CT shows a severely comminuted right superior pubic ramus fracture, significant displacement of the fragments, large pelvic hematoma, comminuted right inferior pubic ramus fracture. Chest x-ray reviewed by myself shows normal chest, AICD, no pulmonary vascular congestion, and no acute abnormalities. CT of the chest from 08/30/2016 shows no acute abnormality and there is some nonspecific faint parenchymal ground-glass opacities, left atrial appendage occluder/Watchman device is noted, cardiomegaly, ectatic aneurysmal aortic arch, and old granulomatous disease. Last echocardiogram from 11/29/2013 shows LVEF of 30 to 35%. ASSESSMENT: The patient is an 83-year-old female with a history of asthmatic bronchitis/COPD/CHF with ischemic cardiomyopathy; sick sinus syndrome, status post pacemaker; and permanent atrial fibrillation, status post Watchman, presenting after ground level fall with a hip fracture. She is stable from a respiratory standpoint to proceed with operation as planned. However, operative plans have been canceled at this point. Utmost importance is for her to have an outpatient pulmonary evaluation once acute issues resolved and good pulmonary hygiene in the perioperative period. PROBLEM LIST: 1. Asthmatic bronchitis versus COPD with multiple prior hospitalizations. 2. CHF with ischemic cardiomyopathy. 3. Permanent AFib. 4. Status post Watchman. 5. Sick sinus syndrome, status post pacemaker. 6. AICD. 7. Diabetes, hypertension. 8. Ground level fall and hip fracture. TREATMENT PLAN: 1. Optimize pulmonary hygiene/mobilize as tolerated. 2. P.r.n. O2. 3. P.r.n. DuoNebs. 4. Incentive spirometry. 5. Monitor volumes and renal function. 6. Followup , nonoperative management. 7. Aspiration precautions. 8. DVT prophylaxis, heparin subcutaneous. 9. The patient needs outpatient pulmonary evaluation with PFTs and screening CT scan of the chest to follow up the ground-glass opacities previously seen. Dr. Billingsley, thank you for allowing me to assist in the care of your patient. If I may be of any assistance in the future, please do not hesitate to ask. Rebecca Velazquez JOB#: [id number] CC:
[2018-07-24 04:00] VITALS: BP 117/64
[2018-07-24] MEDS: NovoLOG Insulin Flexpen SUBQ SCH ×4 (06:02→21:00)
[2018-07-24] MEDS: HYDROcodone/Acetamin 10/325 tab ORAL PRN ×2 (06:31→22:15)
[2018-07-24 07:03] LABS: BASOPHILS % (AUTO) 0.6 % (0.0-2.0); EOSINOPHILS % (AUTO) 1.9 % (0.0-3.0); HEMATOCRIT 26.5 % (37.0-47.0); LYMPHOCYTES % (AUTO) 18.3 % (20.0-45.0); MEAN CORPUSCULAR VOLUME 89 FL (80-99); MONOCYTES % (AUTO) 8.6 % (1.0-10.0); NEUTROPHILS % (AUTO) 70.6 % (45.0-75.0); PLATELET COUNT 126 K/UL (150-450); RED BLOOD COUNT 2.97 M/UL (4.20-5.40); RED CELL DISTRIBUTION WIDTH 13.1 % (11.6-14.8); WHITE BLOOD COUNT 7.6 K/UL (4.8-10.8)
--- NOTE | 2018-07-24 07:15 | NUR ---
HAND-OFF: Report given to MARKO Loyola. Pt is in stable condition; plan of care endorsed.
--- NOTE | 2018-07-24 07:27 | NUR ---
NURSE NOTES: Received report from MARKO Bowen. Patient in bed resting, no active s/s cardiac, respiratory distress noticed at this time. Patient on 2L oxygen via NC for comfort measure. Patient AO x4, V paced with HR 82. Darnell catheter draining well to gravity. IV on right 20G, left forearm 22G, asymptomatic, intact, patent, IV running at prescribed rate. Endorsed 2g of magnesium given for magnesium level of 1.6. Bed in lowest position, side rails upx2, call light within reach. Will continue to monitor.
[2018-07-24 07:49] LABS: ANION GAP 7 mmol/L (5-15); BLOOD UREA NITROGEN 8 mg/dL (7-18); CALCIUM 8.1 MG/DL (8.5-10.1); CARBON DIOXIDE 28 MMOL/L (21-32); CHLORIDE 104 MMOL/L (98-107); CREATININE 0.6 MG/DL (0.55-1.30); POTASSIUM 3.7 MMOL/L (3.5-5.1); SODIUM 138 MMOL/L (136-145)
[2018-07-24 08:00] VITALS: BP 110/56
[2018-07-24] MEDS: sitaGLIPtin 50mg tab ORAL SCH (08:30)
[2018-07-24] MEDS: Metoprolol Tartrate 50mg tab ORAL SCH ×2 (08:31→21:55)
[2018-07-24] MEDS: dilTIAZem HCl CD 240mg cap ORAL SCH (08:31)
[2018-07-24] MEDS: metFORMIN 500mg tab ORAL SCH ×2 (08:31→17:44)
[2018-07-24] MEDS: Heparin 5000 units/ml inj SUBQ SCH ×2 (08:33→22:02)
--- NOTE | 2018-07-24 11:23 | NUR ---
P.T Note: P.T evaluation completed and treatment. Please refer to P.T evaluation for current functional status. Pt is alert, O x 4 and cooperative. Pt reports c/o R hip 08/10 and 03/12 with movement initiation and WB. Pt was willing and was able to engage during functional mobility tasks assessment however but very limited due to above reasons. Pt currently require MAX A x 1 extended amount of time and verbal/manual cues for proper hand-foot placement to initiate bed mobility and transfer mobility tasks. Pt was only able to stand and maintain RLE TTWB for 30 secs. Pt not able to ambulate at this time. Skilled P.T service is warranted to improve her strength, endurance, balance and activity tolerance to improve functional mobility independence ands safety during stay. Recommend SNF for further rehab VS home with P.T at [facility]. Thank you for this referral.
[2018-07-24 12:00] VITALS: BP 91/54
--- NOTE | 2018-07-24 12:28 | Infectious Diseases Prog Note ---
Assessment/Plan Assessment/Plan A; Pyuria, UTI. status post fall right pubic ramus fracture, pelvic hematoma, diabetes type 2, hypertension, COPD. Hypoxemia, chronic CHF. status post pacemaker. P; Continue Rocephin Will f/u cultures Subjective ROS Limited/Unobtainable: Yes Respiratory: Reports: dry cough Cardiovascular: Reports: no symptoms Gastrointestinal/Abdominal: Reports: no symptoms Genitourinary: Reports: no symptoms Musculoskeletal: Reports: pain, other - right leg/ hip Allergies: Coded Allergies: FENTANYL (Verified Allergy, Unknown, 07/22/18) WARFARIN (Unverified Adverse Reaction, Unknown, 11/28/13) Objective Vital Signs Last 24 Hour Vital Signs Date Time Temp Pulse Resp B/P (MAP) Pulse Ox O2 Delivery O2 Flow Rate FiO2 07/24/18 09:33 82 16 Nasal Cannula 2.0 28 07/24/18 09:33 96 Nasal Cannula 2.0 28 07/24/18 09:33 Nasal Cannula 2.0 28 07/24/18 09:00 Nasal Cannula 2.0 07/24/18 08:31 84 110/56 07/24/18 08:31 84 110/56 07/24/18 08:00 97.6 84 18 110/56 (74) 96 07/24/18 08:00 84 07/24/18 04:00 97.7 80 18 117/64 (81) 96 07/24/18 04:00 82 07/24/18 00:00 83 07/24/18 00:00 97.8 82 18 109/60 (76) 95 07/23/18 21:14 82 120/61 07/23/18 21:00 Nasal Cannula 2.0 07/23/18 20:28 Nasal Cannula 2.0 28 07/23/18 20:28 95 Nasal Cannula 2.0 28 07/23/18 20:28 80 16 Nasal Cannula 2.0 28 07/23/18 20:00 80 07/23/18 20:00 97.6 82 18 120/61 (80) 94 07/23/18 16:00 97.2 80 18 104/63 (77) 98 07/23/18 15:15 80 Height (Feet): 5 Height (Inches): 4.00 Weight (Pounds): 164 General Appearance: no acute distress HEENT: mucous membranes moist Respiratory/Chest: lungs clear Cardiovascular: normal rate Abdomen: soft, non tender Extremities: no edema Neurologic/Psychiatric: alert, oriented x 3, responsive Microbiology Date/Time Source Procedure Growth Status 07/22/18 14:30 Urine,Clean Catch Urine Culture - Preliminary Gram Negative Bacillus 1 Resulted Laboratory Tests Test 07/24/18 05:00 White Blood Count 7.6 K/UL (4.8-10.8) Red Blood Count 2.97 M/UL (4.20-5.40) L Hemoglobin 9.0 G/DL (12.0-16.0) L Hematocrit 26.5 % (37.0-47.0) L Mean Corpuscular Volume 89 FL (80-99) Mean Corpuscular Hemoglobin 30.4 PG (27.0-31.0) Mean Corpuscular Hemoglobin Concent 33.9 G/DL (32.0-36.0) Red Cell Distribution Width 13.1 % (11.6-14.8) Platelet Count 126 K/UL (150-450) L Mean Platelet Volume 6.9 FL (6.5-10.1) Neutrophils (%) (Auto) 70.6 % (45.0-75.0) Lymphocytes (%) (Auto) 18.3 % (20.0-45.0) L Monocytes (%) (Auto) 8.6 % (1.0-10.0) Eosinophils (%) (Auto) 1.9 % (0.0-3.0) Basophils (%) (Auto) 0.6 % (0.0-2.0) Sodium Level 138 MMOL/L (136-145) Potassium Level 3.7 MMOL/L (3.5-5.1) Chloride Level 104 MMOL/L (98-107) Carbon Dioxide Level 28 MMOL/L (21-32) Anion Gap 7 mmol/L (5-15) Blood Urea Nitrogen 8 mg/dL (7-18) Creatinine 0.6 MG/DL (0.55-1.30) Estimat Glomerular Filtration Rate mL/min (>60) Glucose Level 106 MG/DL (74-106) Calcium Level 8.1 MG/DL (8.5-10.1) L Troponin I 0.000 ng/mL (0.000-0.056) Current Medications Medications (Trade) Dose Ordered Sig/Mervin Route PRN Reason Start Time Stop Time Status Last Admin Dose Admin Acetaminophen (Tylenol) 650 mg Q4H PRN ORAL Mild Pain/Temp > 100.5 07/22/18 19:00 08/21/18 18:59 07/23/18 09:27 Acetaminophen/ Hydrocodone Bitart ([place] 10/325) 1 tab Q4H PRN ORAL For Pain 07/22/18 15:45 07/29/18 15:44 07/24/18 06:31 Albuterol/ Ipratropium (Albuterol/ Ipratropium) 3 ml Q4H PRN HHN Shortness of Breath 07/22/18 21:30 07/27/18 21:29 Aspirin (ASA) 325 mg DAILY ORAL 07/23/18 09:00 08/22/18 08:59 07/24/18 08:31 Atorvastatin Calcium (Lipitor) 10 mg DAILY ORAL 07/23/18 09:00 08/22/18 08:59 07/24/18 08:31 Ceftriaxone Sodium 1 gm/ Dextrose 55 ml @ 110 mls/hr Q24H IVPB 07/23/18 14:00 07/30/18 13:59 07/23/18 15:18 Dextrose (Dextrose 50%) 25 ml Q30M PRN IV Hypoglycemia 07/22/18 21:15 08/21/18 21:14 Dextrose (Dextrose 50%) 50 ml Q30M PRN IV Hypoglycemia 07/22/18 21:15 08/21/18 21:14 Diltiazem HCl (Cardizem CD) 240 mg DAILY ORAL 07/23/18 09:00 08/22/18 08:59 07/24/18 08:31 Heparin Sodium (Porcine) (Heparin 5000 units/ml) 5,000 units EVERY 12 HOURS SUBQ 07/22/18 21:00 08/21/18 20:59 07/24/18 08:33 Insulin Aspart (NovoLOG) BEFORE MEALS AND HS SUBQ 07/23/18 06:30 08/22/18 06:29 Magnesium Hydroxide (Mom) 30 ml HSPRN PRN ORAL Constipation 07/22/18 15:45 08/21/18 15:44 Metformin HCl (Glucophage) 500 mg TWICE A DAY ORAL 07/23/18 09:00 08/22/18 08:59 07/24/18 08:31 Metoprolol Tartrate (Lopressor) 50 mg Q12HR ORAL 07/22/18 21:00 08/21/18 20:59 07/24/18 08:31 Morphine Sulfate (Morphine Sulfate) 4 mg Q3H PRN IVP Severe Pain (Pain Scale 7-10) 07/22/18 15:45 07/29/18 15:44 Sitagliptin Phosphate (Januvia) 50 mg DAILY ORAL 07/23/18 09:00 08/22/18 08:59 07/24/18 08:30 Sodium Chloride 1,000 ml @ 100 mls/hr Q10H IV 07/22/18 22:45 08/21/18 22:44 07/24/18 03:46 Zolpidem Tartrate (Ambien) 5 mg DAILYPRN PRN ORAL Insomnia 07/22/18 15:45 07/29/18 15:44 Augusto Billingsley MD Jul 24, 2018 12:28
[2018-07-24] MEDS: cefTRIAXone 1 GM in D5W 55 ML IVPB SCH (13:06)
--- NOTE | 2018-07-24 13:14 | General Progress Note ---
Assessment/Plan Problem List: (1) Pelvic fracture ICD Codes: S32.9XXA - Fracture of unspecified parts of lumbosacral spine and pelvis, initial encounter for closed fracture SNOMED: 49555541 (2) Reactive airway disease ICD Codes: J45.909 - Unspecified asthma, uncomplicated SNOMED: 148102684634 (3) DJD (degenerative joint disease) of lumbar spine ICD Codes: M47.816 - Lumbar spondylosis SNOMED: 596219669 (4) HTN (hypertension) ICD Codes: I10 - Hypertension SNOMED: 93470299 (5) Inability to ambulate due to multiple joints ICD Codes: R26.2 - Inability to ambulate due to multiple joints SNOMED: 396408979 (6) Atrial fibrillation ICD Codes: I48.91 - Atrial fibrillation SNOMED: 86213570 (7) DM (diabetes mellitus) ICD Codes: E11.9 - Diabetes mellitus SNOMED: 60710421 (8) Anemia Assessment & Plan: likely from fracture ICD Codes: D64.9 - Anemia, unspecified SNOMED: 971202334 Assessment/Plan pain meds PT Pulm and cardio F/U follow CBC/ Iron panel will need rehab Subjective Allergies: Coded Allergies: FENTANYL (Verified Allergy, Unknown, 07/22/18) WARFARIN (Unverified Adverse Reaction, Unknown, 11/28/13) Subjective feels ok Objective Last 24 Hour Vital Signs Date Time Temp Pulse Resp B/P (MAP) Pulse Ox O2 Delivery O2 Flow Rate FiO2 07/24/18 09:33 82 16 Nasal Cannula 2.0 28 07/24/18 09:33 96 Nasal Cannula 2.0 28 07/24/18 09:33 Nasal Cannula 2.0 28 07/24/18 09:00 Nasal Cannula 2.0 07/24/18 08:31 84 110/56 07/24/18 08:31 84 110/56 07/24/18 08:00 97.6 84 18 110/56 (74) 96 07/24/18 08:00 84 07/24/18 04:00 97.7 80 18 117/64 (81) 96 07/24/18 04:00 82 07/24/18 00:00 83 07/24/18 00:00 97.8 82 18 109/60 (76) 95 07/23/18 21:14 82 120/61 07/23/18 21:00 Nasal Cannula 2.0 07/23/18 20:28 Nasal Cannula 2.0 28 07/23/18 20:28 95 Nasal Cannula 2.0 28 07/23/18 20:28 80 16 Nasal Cannula 2.0 28 07/23/18 20:00 80 07/23/18 20:00 97.6 82 18 120/61 (80) 94 07/23/18 16:00 97.2 80 18 104/63 (77) 98 07/23/18 15:15 80 Intake and Output 07/23/18 07/24/18 19:00 07:00 Intake Total 1370 ml 1600 ml Output Total 900 ml 1550 ml Balance 470 ml 50 ml Intake Oral 360 ml 300 ml IV Total 1010 ml 1300 ml Output Urine Total 900 ml 1550 ml Laboratory Tests 07/24/18 05:00: White Blood Count 7.6, Red Blood Count 2.97L, Hemoglobin 9.0L, Hematocrit 26.5L , Mean Corpuscular Volume 89, Mean Corpuscular Hemoglobin 30.4, Mean Corpuscular Hemoglobin Concent 33.9, Red Cell Distribution Width 13.1, Platelet Count 126L, Mean Platelet Volume 6.9, Neutrophils (%) (Auto) 70.6, Lymphocytes ( %) (Auto) 18.3L, Monocytes (%) (Auto) 8.6, Eosinophils (%) (Auto) 1.9, Basophils (%) (Auto) 0.6, Sodium Level 138, Potassium Level 3.7, Chloride Level 104, Carbon Dioxide Level 28, Anion Gap 7, Blood Urea Nitrogen 8, Creatinine 0.6 , Estimat Glomerular Filtration Rate , Glucose Level 106, Calcium Level 8.1L, Troponin I 0.000 Height (Feet): 5 Height (Inches): 4.00 Weight (Pounds): 164 Cardiovascular: normal rate Respiratory/Chest: lungs clear Edema: no edema noted Generalized Justin Billingsley MD Jul 24, 2018 13:14
[2018-07-24 16:00] VITALS: BP 104/58
[2018-07-24 20:00] VITALS: BP 127/57
--- NOTE | 2018-07-24 20:08 | NUR ---
HAND-OFF: Report given to MARKO Carreon.
--- NOTE | 2018-07-24 20:09 | NUR ---
NURSE NOTES: Received report from MARKO Loyola. Patient sitting in bed awake showing no signs of acute distress. Vital stable. No Sob. Respiration even and non labored on 2L NC. 2 IV site patent and intact. Bed in lowest position. Call light within reach. All needs attended and met. Will continue plan of care.
--- NOTE | 2018-07-24 20:43 | Cardiology Progress Note ---
Assessment/Plan Assessment/Plan 1. Non-syncopal fall. 2. Pubic ramus fracture with displacement. 3. Hematoma. 4. Permanent atrial fibrillation. 5. Chronic congestive heart failure. 6. Dilated cardiomyopathy. 7. Diabetes mellitus. 8. History of intracardiac defibrillator placement. 9. hypotension 10. UTI? 11. anemai bp borderliene tele paced d/w pulm hr controlled not on anticoag as has LAST occlusion watch hgb post hematoma Subjective Cardiovascular: Denies: chest pain, lightheadedness Respiratory: Denies: shortness of breath Gastrointestinal/Abdominal: Reports: abdominal pain Genitourinary: Denies: burning Subjective sore thorat sore Objective Last 24 Hour Vital Signs Date Time Temp Pulse Resp B/P (MAP) Pulse Ox O2 Delivery O2 Flow Rate FiO2 07/24/18 16:00 80 07/24/18 16:00 98.2 85 18 104/58 (73) 97 07/24/18 12:00 97.9 86 20 91/54 (66) 98 07/24/18 12:00 82 07/24/18 09:33 82 16 Nasal Cannula 2.0 28 07/24/18 09:33 96 Nasal Cannula 2.0 28 07/24/18 09:33 Nasal Cannula 2.0 28 07/24/18 09:00 Nasal Cannula 2.0 07/24/18 08:31 84 110/56 07/24/18 08:31 84 110/56 07/24/18 08:00 97.6 84 18 110/56 (74) 96 07/24/18 08:00 84 07/24/18 04:00 97.7 80 18 117/64 (81) 96 07/24/18 04:00 82 07/24/18 00:00 83 07/24/18 00:00 97.8 82 18 109/60 (76) 95 07/23/18 21:14 82 120/61 07/23/18 21:00 Nasal Cannula 2.0 General Appearance: no apparent distress, alert Neck: supple Cardiovascular: normal rate Respiratory/Chest: lungs clear Abdomen: non tender, soft Extremities: no swelling Intake and Output 07/23/18 07/24/18 19:00 07:00 Intake Total 1370 ml 1600 ml Output Total 900 ml 1550 ml Balance 470 ml 50 ml Intake Oral 360 ml 300 ml IV Total 1010 ml 1300 ml Output Urine Total 900 ml 1550 ml Laboratory Tests Test 07/24/18 05:00 White Blood Count 7.6 K/UL (4.8-10.8) Red Blood Count 2.97 M/UL (4.20-5.40) L Hemoglobin 9.0 G/DL (12.0-16.0) L Hematocrit 26.5 % (37.0-47.0) L Mean Corpuscular Volume 89 FL (80-99) Mean Corpuscular Hemoglobin 30.4 PG (27.0-31.0) Mean Corpuscular Hemoglobin Concent 33.9 G/DL (32.0-36.0) Red Cell Distribution Width 13.1 % (11.6-14.8) Platelet Count 126 K/UL (150-450) L Mean Platelet Volume 6.9 FL (6.5-10.1) Neutrophils (%) (Auto) 70.6 % (45.0-75.0) Lymphocytes (%) (Auto) 18.3 % (20.0-45.0) L Monocytes (%) (Auto) 8.6 % (1.0-10.0) Eosinophils (%) (Auto) 1.9 % (0.0-3.0) Basophils (%) (Auto) 0.6 % (0.0-2.0) Sodium Level 138 MMOL/L (136-145) Potassium Level 3.7 MMOL/L (3.5-5.1) Chloride Level 104 MMOL/L (98-107) Carbon Dioxide Level 28 MMOL/L (21-32) Anion Gap 7 mmol/L (5-15) Blood Urea Nitrogen 8 mg/dL (7-18) Creatinine 0.6 MG/DL (0.55-1.30) Estimat Glomerular Filtration Rate mL/min (>60) Glucose Level 106 MG/DL (74-106) Calcium Level 8.1 MG/DL (8.5-10.1) L Troponin I 0.000 ng/mL (0.000-0.056) Microbiology Date/Time Source Procedure Growth Status 07/22/18 14:30 Urine,Clean Catch Urine Culture - Preliminary Gram Negative Bacillus 1 Resulted Jean Carlos Ngo MD Jul 24, 2018 20:43
--- NOTE | 2018-07-24 22:07 | Pulmonology Progress Note ---
Assessment/Plan Assessment/Plan ASSESSMENT: The patient is an 83-year-old female with a history of asthmatic bronchitis/COPD/CHF with ischemic cardiomyopathy; sick sinus syndrome, status post pacemaker; and permanent atrial fibrillation, status post Watchman, presenting after ground level fall with a hip fracture. She is stable from a respiratory standpoint to proceed with operation as planned. However, operative plans have been canceled at this point. Utmost importance is for her to have an outpatient pulmonary evaluation once acute issues resolved and good pulmonary hygiene in the perioperative period. PROBLEM LIST: 1. Asthmatic bronchitis versus COPD with multiple prior hospitalizations. 2. CHF with ischemic cardiomyopathy. 3. Permanent AFib. 4. Status post Watchman. 5. Sick sinus syndrome, status post pacemaker. 6. AICD. 7. Diabetes, hypertension. 8. Ground level fall and hip fracture. TREATMENT PLAN: 1. Optimize pulmonary hygiene/mobilize as tolerated. 2. P.r.n. O2. 3. RTC and DuoNebs. 4. Incentive spirometry. 5. Monitor volumes and renal function. 6. Followup ortho recs, nonoperative management. 7. Aspiration precautions. 8. DVT prophylaxis, heparin subcutaneous. 9. The patient needs outpatient pulmonary evaluation with PFTs and screening CT scan of the chest to follow up the ground-glass opacities previously seen. Subjective Allergies: Coded Allergies: FENTANYL (Verified Allergy, Unknown, 07/22/18) WARFARIN (Unverified Adverse Reaction, Unknown, 11/28/13) Subjective AFVSS on 2L + cough no SOB no CP no F/C Objective Last 24 Hour Vital Signs Date Time Temp Pulse Resp B/P (MAP) Pulse Ox O2 Delivery O2 Flow Rate FiO2 07/24/18 21:55 83 127/57 07/24/18 20:54 Nasal Cannula 2.0 28 07/24/18 20:54 82 18 Nasal Cannula 2.0 28 07/24/18 20:54 97 Nasal Cannula 2.0 28 07/24/18 16:00 80 07/24/18 16:00 98.2 85 18 104/58 (73) 97 07/24/18 12:00 97.9 86 20 91/54 (66) 98 07/24/18 12:00 82 07/24/18 09:33 82 16 Nasal Cannula 2.0 28 07/24/18 09:33 96 Nasal Cannula 2.0 28 07/24/18 09:33 Nasal Cannula 2.0 28 07/24/18 09:00 Nasal Cannula 2.0 07/24/18 08:31 84 110/56 07/24/18 08:31 84 110/56 07/24/18 08:00 97.6 84 18 110/56 (74) 96 07/24/18 08:00 84 07/24/18 04:00 97.7 80 18 117/64 (81) 96 07/24/18 04:00 82 07/24/18 00:00 83 07/24/18 00:00 97.8 82 18 109/60 (76) 95 Intake and Output 07/23/18 07/24/18 19:00 07:00 Intake Total 1370 ml 1600 ml Output Total 900 ml 1550 ml Balance 470 ml 50 ml Intake Oral 360 ml 300 ml IV Total 1010 ml 1300 ml Output Urine Total 900 ml 1550 ml General Appearance: WD/WN, no acute distress HEENT: normocephalic, atraumatic, anicteric, mucous membranes moist Respiratory/Chest: chest wall non-tender, lungs clear, normal breath sounds, no respiratory distress, no accessory muscle use Cardiovascular: normal peripheral pulses, normal rate, regular rhythm Abdomen: normal bowel sounds, soft, non tender, no organomegaly, non distended , no mass Extremities: no cyanosis, no clubbing, no edema Microbiology Date/Time Source Procedure Growth Status 07/22/18 14:30 Urine,Clean Catch Urine Culture - Preliminary Gram Negative Bacillus 1 Resulted Laboratory Tests 07/24/18 05:00: White Blood Count 7.6, Red Blood Count 2.97L, Hemoglobin 9.0L, Hematocrit 26.5L , Mean Corpuscular Volume 89, Mean Corpuscular Hemoglobin 30.4, Mean Corpuscular Hemoglobin Concent 33.9, Red Cell Distribution Width 13.1, Platelet Count 126L, Mean Platelet Volume 6.9, Neutrophils (%) (Auto) 70.6, Lymphocytes ( %) (Auto) 18.3L, Monocytes (%) (Auto) 8.6, Eosinophils (%) (Auto) 1.9, Basophils (%) (Auto) 0.6, Sodium Level 138, Potassium Level 3.7, Chloride Level 104, Carbon Dioxide Level 28, Anion Gap 7, Blood Urea Nitrogen 8, Creatinine 0.6 , Estimat Glomerular Filtration Rate , Glucose Level 106, Calcium Level 8.1L, Troponin I 0.000 Current Medications Medications (Trade) Dose Ordered Sig/Mervin Route PRN Reason Start Time Stop Time Status Last Admin Dose Admin Acetaminophen (Tylenol) 650 mg Q4H PRN ORAL Mild Pain/Temp > 100.5 07/22/18 19:00 08/21/18 18:59 07/23/18 09:27 Acetaminophen/ Hydrocodone Bitart ([place] 10/325) 1 tab Q4H PRN ORAL For Pain 07/22/18 15:45 07/29/18 15:44 07/24/18 06:31 Albuterol/ Ipratropium (Albuterol/ Ipratropium) 3 ml Q4H PRN HHN Shortness of Breath 07/22/18 21:30 07/27/18 21:29 Aspirin (ASA) 325 mg DAILY ORAL 07/23/18 09:00 08/22/18 08:59 07/24/18 08:31 Atorvastatin Calcium (Lipitor) 10 mg DAILY ORAL 07/23/18 09:00 08/22/18 08:59 07/24/18 08:31 Ceftriaxone Sodium 1 gm/ Dextrose 55 ml @ 110 mls/hr Q24H IVPB 07/23/18 14:00 07/30/18 13:59 07/24/18 13:06 Dextrose (Dextrose 50%) 25 ml Q30M PRN IV Hypoglycemia 07/22/18 21:15 08/21/18 21:14 Dextrose (Dextrose 50%) 50 ml Q30M PRN IV Hypoglycemia 07/22/18 21:15 08/21/18 21:14 Diltiazem HCl (Cardizem CD) 240 mg DAILY ORAL 07/23/18 09:00 08/22/18 08:59 07/24/18 08:31 Heparin Sodium (Porcine) (Heparin 5000 units/ml) 5,000 units EVERY 12 HOURS SUBQ 07/22/18 21:00 08/21/18 20:59 07/24/18 22:02 Insulin Aspart (NovoLOG) BEFORE MEALS AND HS SUBQ 07/23/18 06:30 08/22/18 06:29 Magnesium Hydroxide (Mom) 30 ml HSPRN PRN ORAL Constipation 07/22/18 15:45 08/21/18 15:44 Metformin HCl (Glucophage) 500 mg TWICE A DAY ORAL 07/23/18 09:00 08/22/18 08:59 07/24/18 17:44 Metoprolol Tartrate (Lopressor) 50 mg Q12HR ORAL 07/22/18 21:00 08/21/18 20:59 07/24/18 21:55 Morphine Sulfate (Morphine Sulfate) 4 mg Q3H PRN IVP Severe Pain (Pain Scale 7-10) 07/22/18 15:45 07/29/18 15:44 Sitagliptin Phosphate (Januvia) 50 mg DAILY ORAL 07/23/18 09:00 08/22/18 08:59 07/24/18 08:30 Sodium Chloride 1,000 ml @ 100 mls/hr Q10H IV 07/22/18 22:45 08/21/18 22:44 07/24/18 14:45 Zolpidem Tartrate (Ambien) 5 mg DAILYPRN PRN ORAL Insomnia 07/22/18 15:45 07/29/18 15:44 Ethan Luna MD Jul 24, 2018 22:07
[2018-07-25] VITALS: BP 115/57
[2018-07-25] MEDS: Albuterol/Ipratropium 3ml neb HHN SCH ×3 (02:00→13:37)
[2018-07-25 04:00] VITALS: BP 114/54
[2018-07-25] MEDS: NovoLOG Insulin Flexpen SUBQ SCH ×3 (06:13→16:30)
[2018-07-25 07:40] LABS: BASOPHILS % (AUTO) 0.5 % (0.0-2.0); EOSINOPHILS % (AUTO) 0.7 % (0.0-3.0); HEMATOCRIT 24.3 % (37.0-47.0); HEMOGLOBIN 8.3 G/DL (12.0-16.0); LYMPHOCYTES % (AUTO) 13.9 % (20.0-45.0); MEAN CORPUSCULAR VOLUME 90 FL (80-99); MONOCYTES % (AUTO) 8.8 % (1.0-10.0); NEUTROPHILS % (AUTO) 76.2 % (45.0-75.0); PLATELET COUNT 127 K/UL (150-450); RED BLOOD COUNT 2.71 M/UL (4.20-5.40); RED CELL DISTRIBUTION WIDTH 12.9 % (11.6-14.8); WHITE BLOOD COUNT 9.7 K/UL (4.8-10.8)
--- NOTE | 2018-07-25 07:45 | NUR ---
HAND-OFF: Report given to MARKO Bach.
--- NOTE | 2018-07-25 07:57 | NUR ---
NURSE NOTES: Pt asleep in bed, breathing easily on 4 lpm nasal cannula, Vital signs stable with V-pace at 80 on monitor. IV access right a/c saline lock and left forearm with NS running at 100 ml/hr. bailey cath in place draining clear yellow/tamiko urine to collection bag at foot of bed. Pt repositioned to high fowlers position for breakfast. Bed left in low position, exit alarm set, side rails up x 3 and call light left near pt's hand.
[2018-07-25 08:00] VITALS: BP 112/60
[2018-07-25 08:27] LABS: % IRON SATURATION 8 % (15-50); IRON 13 ug/dL (50-175); TOTAL IRON BINDING CAPACITY 166 ug/dL (250-450)
[2018-07-25] MEDS: Heparin 5000 units/ml inj SUBQ SCH (09:00)
[2018-07-25] MEDS: dilTIAZem HCl CD 240mg cap ORAL SCH (09:02)
[2018-07-25] MEDS: sitaGLIPtin 50mg tab ORAL SCH (09:02)
[2018-07-25] MEDS: Metoprolol Tartrate 50mg tab ORAL SCH (09:03)
[2018-07-25] MEDS: metFORMIN 500mg tab ORAL SCH ×2 (09:05→17:59)
[2018-07-25] MEDS: HYDROcodone/Acetamin 10/325 tab ORAL PRN (10:23)
[2018-07-25 12:00] VITALS: BP 101/63
--- NOTE | 2018-07-25 12:41 | General Progress Note ---
Assessment/Plan Problem List: (1) Pelvic fracture ICD Codes: S32.9XXA - Fracture of unspecified parts of lumbosacral spine and pelvis, initial encounter for closed fracture SNOMED: 84200951 (2) Reactive airway disease ICD Codes: J45.909 - Unspecified asthma, uncomplicated SNOMED: 828535595999 (3) DJD (degenerative joint disease) of lumbar spine ICD Codes: M47.816 - Lumbar spondylosis SNOMED: 255092609 (4) HTN (hypertension) ICD Codes: I10 - Hypertension SNOMED: 25598143 (5) Inability to ambulate due to multiple joints ICD Codes: R26.2 - Inability to ambulate due to multiple joints SNOMED: 433181364 (6) Atrial fibrillation ICD Codes: I48.91 - Atrial fibrillation SNOMED: 37278250 (7) DM (diabetes mellitus) ICD Codes: E11.9 - Diabetes mellitus SNOMED: 13385321 (8) Iron deficiency ICD Codes: E61.1 - Iron deficiency SNOMED: 61849670 (9) Anemia Assessment & Plan: likely from fracture worse ICD Codes: D64.9 - Anemia, unspecified SNOMED: 774590025 Assessment/Plan IV Iron PT Dc today if bed available will follow H/H as outpt Subjective Allergies: Coded Allergies: FENTANYL (Verified Allergy, Unknown, 07/22/18) WARFARIN (Unverified Adverse Reaction, Unknown, 11/28/13) Subjective feels ok Objective Last 24 Hour Vital Signs Date Time Temp Pulse Resp B/P (MAP) Pulse Ox O2 Delivery O2 Flow Rate FiO2 07/25/18 09:03 84 114/54 07/25/18 09:02 84 114/54 07/25/18 07:44 81 16 97 Room Air 21 07/25/18 07:34 Room Air 21 07/25/18 07:34 97 Room Air 21 07/25/18 07:34 84 16 93 Room Air 21 07/25/18 04:00 80 07/25/18 04:00 99.7 82 18 114/54 (74) 95 07/25/18 02:00 Nasal Cannula 2.0 28 07/25/18 02:00 Nasal Cannula 2.0 28 07/25/18 00:00 99.7 83 18 115/57 (76) 97 07/24/18 21:55 83 127/57 07/24/18 21:00 Nasal Cannula 2.0 07/24/18 20:54 Nasal Cannula 2.0 28 07/24/18 20:54 82 18 Nasal Cannula 2.0 28 07/24/18 20:54 97 Nasal Cannula 2.0 28 07/24/18 20:00 80 07/24/18 20:00 98.8 83 18 127/57 (80) 95 07/24/18 16:00 80 07/24/18 16:00 98.2 85 18 104/58 (73) 97 Intake and Output 07/24/18 07/25/18 19:00 07:00 Intake Total 360 ml 1506.4 ml Output Total 1300 ml 1000 ml Balance -940 ml 506.4 ml Intake Oral 360 ml IV Total 1506.4 ml Output Urine Total 1300 ml 1000 ml Laboratory Tests 07/25/18 06:02: White Blood Count 9.7, Red Blood Count 2.71L, Hemoglobin 8.3L, Hematocrit 24.3L , Mean Corpuscular Volume 90, Mean Corpuscular Hemoglobin 30.6, Mean Corpuscular Hemoglobin Concent 34.1, Red Cell Distribution Width 12.9, Platelet Count 127L, Mean Platelet Volume 7.3, Neutrophils (%) (Auto) 76.2H, Lymphocytes (%) (Auto) 13.9L, Monocytes (%) (Auto) 8.8, Eosinophils (%) (Auto) 0.7, Basophils (%) (Auto) 0.5, Iron Level 13L, Total Iron Binding Capacity 166L, Percent Iron Saturation 8L, Unsaturated Iron Binding 153 Height (Feet): 5 Height (Inches): 4.00 Weight (Pounds): 164 Cardiovascular: normal rate Respiratory/Chest: lungs clear Edema: no edema noted Generalized Justin Billingsley MD Jul 25, 2018 12:41
--- NOTE | 2018-07-25 13:51 | Infectious Diseases Prog Note ---
Assessment/Plan Assessment/Plan A; Pyuria, UTI. status post fall right pubic ramus fracture, pelvic hematoma, diabetes type 2, hypertension, COPD. Hypoxemia, chronic CHF. status post pacemaker. P; Change Rocephin to Cipro Agree with discharge Subjective ROS Limited/Unobtainable: No Respiratory: Reports: no symptoms Cardiovascular: Reports: no symptoms Genitourinary: Reports: no symptoms Musculoskeletal: Reports: pain, other - in right hip Allergies: Coded Allergies: FENTANYL (Verified Allergy, Unknown, 07/22/18) WARFARIN (Unverified Adverse Reaction, Unknown, 11/28/13) Objective Vital Signs Last 24 Hour Vital Signs Date Time Temp Pulse Resp B/P (MAP) Pulse Ox O2 Delivery O2 Flow Rate FiO2 07/25/18 13:37 81 18 90 Room Air 21 07/25/18 12:00 97.0 80 18 101/63 (76) 92 07/25/18 12:00 80 07/25/18 09:03 84 114/54 07/25/18 09:02 84 114/54 07/25/18 09:00 Nasal Cannula 2.0 07/25/18 08:00 96.8 80 18 112/60 (77) 93 07/25/18 08:00 80 07/25/18 07:44 81 16 97 Room Air 21 07/25/18 07:34 Room Air 21 07/25/18 07:34 97 Room Air 21 07/25/18 07:34 84 16 93 Room Air 21 07/25/18 04:00 80 07/25/18 04:00 99.7 82 18 114/54 (74) 95 07/25/18 02:00 Nasal Cannula 2.0 28 07/25/18 02:00 Nasal Cannula 2.0 28 07/25/18 00:00 99.7 83 18 115/57 (76) 97 07/24/18 21:55 83 127/57 07/24/18 21:00 Nasal Cannula 2.0 07/24/18 20:54 Nasal Cannula 2.0 28 07/24/18 20:54 82 18 Nasal Cannula 2.0 28 07/24/18 20:54 97 Nasal Cannula 2.0 28 07/24/18 20:00 80 07/24/18 20:00 98.8 83 18 127/57 (80) 95 07/24/18 16:00 80 07/24/18 16:00 98.2 85 18 104/58 (73) 97 Height (Feet): 5 Height (Inches): 4.00 Weight (Pounds): 164 General Appearance: no acute distress HEENT: mucous membranes moist Respiratory/Chest: lungs clear Cardiovascular: normal rate Abdomen: soft, non tender Extremities: no edema Neurologic/Psychiatric: alert, oriented x 3, responsive Microbiology Date/Time Source Procedure Growth Status 07/22/18 14:30 Urine,Clean Catch Urine Culture - Final Escherichia Coli Complete Laboratory Tests Test 07/25/18 06:02 White Blood Count 9.7 K/UL (4.8-10.8) Red Blood Count 2.71 M/UL (4.20-5.40) L Hemoglobin 8.3 G/DL (12.0-16.0) L Hematocrit 24.3 % (37.0-47.0) L Mean Corpuscular Volume 90 FL (80-99) Mean Corpuscular Hemoglobin 30.6 PG (27.0-31.0) Mean Corpuscular Hemoglobin Concent 34.1 G/DL (32.0-36.0) Red Cell Distribution Width 12.9 % (11.6-14.8) Platelet Count 127 K/UL (150-450) L Mean Platelet Volume 7.3 FL (6.5-10.1) Neutrophils (%) (Auto) 76.2 % (45.0-75.0) H Lymphocytes (%) (Auto) 13.9 % (20.0-45.0) L Monocytes (%) (Auto) 8.8 % (1.0-10.0) Eosinophils (%) (Auto) 0.7 % (0.0-3.0) Basophils (%) (Auto) 0.5 % (0.0-2.0) Iron Level 13 ug/dL (50-175) L Total Iron Binding Capacity 166 ug/dL (250-450) L Percent Iron Saturation 8 % (15-50) L Unsaturated Iron Binding 153 ug/dL (112-346) Current Medications Medications (Trade) Dose Ordered Sig/Mervin Route PRN Reason Start Time Stop Time Status Last Admin Dose Admin Acetaminophen (Tylenol) 650 mg Q4H PRN ORAL Mild Pain/Temp > 100.5 07/22/18 19:00 08/21/18 18:59 07/23/18 09:27 Acetaminophen/ Hydrocodone Bitart ([place] 10/325) 1 tab Q4H PRN ORAL For Pain 07/22/18 15:45 07/29/18 15:44 07/25/18 10:23 Albuterol/ Ipratropium (Albuterol/ Ipratropium) 3 ml Q4H PRN HHN Shortness of Breath 07/22/18 21:30 07/27/18 21:29 Albuterol/ Ipratropium (Albuterol/ Ipratropium) 3 ml Q6HRT HHN 07/25/18 01:00 07/30/18 00:59 07/25/18 13:37 Aspirin (ASA) 325 mg DAILY ORAL 07/23/18 09:00 08/22/18 08:59 07/25/18 09:02 Atorvastatin Calcium (Lipitor) 10 mg DAILY ORAL 07/23/18 09:00 08/22/18 08:59 07/25/18 09:03 Ciprofloxacin (Cipro 250mg tab) 250 mg EVERY 12 HOURS ORAL 07/25/18 21:00 08/01/18 20:59 Ciprofloxacin (Cipro 250mg tab) 250 mg ONCE ORAL 07/25/18 13:00 07/25/18 14:00 Dextrose (Dextrose 50%) 25 ml Q30M PRN IV Hypoglycemia 07/22/18 21:15 08/21/18 21:14 Dextrose (Dextrose 50%) 50 ml Q30M PRN IV Hypoglycemia 07/22/18 21:15 08/21/18 21:14 Diltiazem HCl (Cardizem CD) 240 mg DAILY ORAL 07/23/18 09:00 08/22/18 08:59 07/25/18 09:02 Heparin Sodium (Porcine) (Heparin 5000 units/ml) 5,000 units EVERY 12 HOURS SUBQ 07/22/18 21:00 08/21/18 20:59 07/24/18 22:02 Insulin Aspart (NovoLOG) BEFORE MEALS AND HS SUBQ 07/23/18 06:30 08/22/18 06:29 07/25/18 11:58 Iron Sucrose 100 mg/Sodium Chloride 60 ml @ 240 mls/hr BEDTIME IV 07/25/18 21:00 07/29/18 21:14 Magnesium Hydroxide (Mom) 30 ml HSPRN PRN ORAL Constipation 07/22/18 15:45 08/21/18 15:44 Metformin HCl (Glucophage) 500 mg TWICE A DAY ORAL 07/23/18 09:00 08/22/18 08:59 07/25/18 09:05 Metoprolol Tartrate (Lopressor) 50 mg Q12HR ORAL 07/22/18 21:00 08/21/18 20:59 07/25/18 09:03 Morphine Sulfate (Morphine Sulfate) 4 mg Q3H PRN IVP Severe Pain (Pain Scale 7-10) 07/22/18 15:45 07/29/18 15:44 Sitagliptin Phosphate (Januvia) 50 mg DAILY ORAL 07/23/18 09:00 08/22/18 08:59 07/25/18 09:02 Sodium Chloride 1,000 ml @ 100 mls/hr Q10H IV 07/22/18 22:45 08/21/18 22:44 07/25/18 10:21 Zolpidem Tartrate (Ambien) 5 mg DAILYPRN PRN ORAL Insomnia 07/22/18 15:45 07/29/18 15:44 Augusto Billingsley MD Jul 25, 2018 13:51
--- NOTE | 2018-07-25 14:50 | NUR ---
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
[2018-07-25 16:00] VITALS: BP 113/59
--- NOTE | 2018-07-25 19:04 | NUR ---
NURSE NOTES: Informed Dr. Keane that patient has refused blood draw and patient needs wound consult for right heel st3 wound. New orders carried out. And also informed Dr. Cruz for wound consult. Addendum: 07/25/18 at 1907 by NIKO ROBERTS RN wrong entry.
--- NOTE | 2018-07-25 19:14 | Cardiology Progress Note ---
Assessment/Plan Assessment/Plan 1. Non-syncopal fall. 2. Pubic ramus fracture with displacement. 3. Hematoma. 4. Permanent atrial fibrillation. 5. Chronic congestive heart failure. 6. Dilated cardiomyopathy. 7. Diabetes mellitus. 8. History of intracardiac defibrillator placement. 9. hypotension 10. UTI? 11. anemai bp ok tele paced hr controlled not on anticoag as has LAST occlusion watch hgb post hematoma to snf soon Subjective Cardiovascular: Denies: chest pain Respiratory: Denies: SOB with excertion Gastrointestinal/Abdominal: Denies: abdominal pain Genitourinary: Denies: discharge Objective Last 24 Hour Vital Signs Date Time Temp Pulse Resp B/P (MAP) Pulse Ox O2 Delivery O2 Flow Rate FiO2 07/25/18 16:00 98.2 80 18 113/59 (77) 96 07/25/18 16:00 80 07/25/18 13:49 85 16 98 Nasal Cannula 2.0 28 07/25/18 13:37 81 18 90 Room Air 21 07/25/18 12:00 97.0 80 18 101/63 (76) 92 07/25/18 12:00 80 07/25/18 09:03 84 114/54 07/25/18 09:02 84 114/54 07/25/18 09:00 Nasal Cannula 2.0 07/25/18 08:00 96.8 80 18 112/60 (77) 93 07/25/18 08:00 80 07/25/18 07:44 81 16 97 Room Air 21 07/25/18 07:34 Room Air 21 07/25/18 07:34 97 Room Air 21 07/25/18 07:34 84 16 93 Room Air 21 07/25/18 04:00 80 07/25/18 04:00 99.7 82 18 114/54 (74) 95 07/25/18 02:00 Nasal Cannula 2.0 28 07/25/18 02:00 Nasal Cannula 2.0 28 07/25/18 00:00 99.7 83 18 115/57 (76) 97 07/24/18 21:55 83 127/57 07/24/18 21:00 Nasal Cannula 2.0 07/24/18 20:54 Nasal Cannula 2.0 28 07/24/18 20:54 82 18 Nasal Cannula 2.0 28 07/24/18 20:54 97 Nasal Cannula 2.0 28 07/24/18 20:00 80 07/24/18 20:00 98.8 83 18 127/57 (80) 95 General Appearance: no apparent distress, alert Neck: supple Cardiovascular: normal rate Respiratory/Chest: lungs clear Abdomen: non tender, soft Extremities: no swelling Intake and Output 07/24/18 07/25/18 18:59 06:59 Intake Total 360 ml 1406.4 ml Output Total 1300 ml 1000 ml Balance -940 ml 406.4 ml Intake Oral 360 ml IV Total 1406.4 ml Output Urine Total 1300 ml 1000 ml Laboratory Tests Test 07/25/18 06:02 White Blood Count 9.7 K/UL (4.8-10.8) Red Blood Count 2.71 M/UL (4.20-5.40) L Hemoglobin 8.3 G/DL (12.0-16.0) L Hematocrit 24.3 % (37.0-47.0) L Mean Corpuscular Volume 90 FL (80-99) Mean Corpuscular Hemoglobin 30.6 PG (27.0-31.0) Mean Corpuscular Hemoglobin Concent 34.1 G/DL (32.0-36.0) Red Cell Distribution Width 12.9 % (11.6-14.8) Platelet Count 127 K/UL (150-450) L Mean Platelet Volume 7.3 FL (6.5-10.1) Neutrophils (%) (Auto) 76.2 % (45.0-75.0) H Lymphocytes (%) (Auto) 13.9 % (20.0-45.0) L Monocytes (%) (Auto) 8.8 % (1.0-10.0) Eosinophils (%) (Auto) 0.7 % (0.0-3.0) Basophils (%) (Auto) 0.5 % (0.0-2.0) Iron Level 13 ug/dL (50-175) L Total Iron Binding Capacity 166 ug/dL (250-450) L Percent Iron Saturation 8 % (15-50) L Unsaturated Iron Binding 153 ug/dL (112-346) Jean Carlos Ngo MD Jul 25, 2018 19:14
[2018-07-25] MEDS ORDERED: NS 275ml ONE (19:33)
[2018-07-25] MEDS ORDERED: Tubing IV Secondary IV ONE (19:33)
--- NOTE | 2018-07-25 19:34 | NUR ---
NURSE NOTES: Pt discharged to [facility] via [facility] IV d/c, [facility] st[facility] they will d/c leo. Vital signs stable with V-pace @ 80 on monitor. Pt left with all belongings breathing easily on room air Addendum: 07/25/18 at 1957 by ADITYA DRAKE RN Report given to MARKO Schultz at [facility].
[2018-07-25] MEDS ORDERED: Iron Sucrose 100 MG in NS 55 ML IV SCH (21:00)
--- NOTE | 2018-08-06 12:34 | Discharge Summary ---
Discharge Summary Discharge Summary _ Chart summary DATE OF ADMISSION: 07/22/2018 DATE OF DISCHARGE: 219 DISCHARGED BY: Dr. Billingsley REASON FOR ADMISSION: 83 years old female with past medical history of diabetes mellitus, COPD with multiply COPD exacerbation, pneumonia, history of hypertension, arthritis, atrial fibrillation, status post Watchman device insertion, not on anticoagulation, was walking with a walker outside and then tripped and fell. Patient was helped to wheelchair with transfer back home. Patient was brought to the hospital due to inability to walk. CT of the pelvis reveals severe comminuted right superior pubic rami fracture with significant displacement of the fragment. There was a large resulting pelvic hematoma measuring 12 x 6 x 9 cm . Patient also had nondisplaced right inferior pubic rami fracture. There was no evidence of hip fracture. Laboratory workup revealed leukocytosis WBC 16.5. Stable hemoglobin hematocrit. Urinalysis was revealed evidence of UTI Chemistry was stable. EKG revealed normal sinus rhythm,. No acute ischemic changes chest x-ray revealed no evidence of acute cardiopulmonary pathology. Patient was admitted for further management. CONSULTANTS: preflight inspector Dr. Ngo pulmonary Dr. Luna ortho surgery Dr. Gupta ID specialist Dr. Wesley HOSPITAL COURSE: Patient was admitted to monitored floor. Orthopedic surgery consult was requested. Patient was started on empiric antibiotics for UTI. Cardiology and pulmonology consult were requested. Orthopedic surgeon seen and evaluated patient. Findings were discussed with patient in detail. There was no need for surgery in this case. Patient will need to be up for 4 weeks at toe-touch weightbearing status. After 4 weeks she will be able to progress to full weightbearing status as tolerated. With regards to knees , patient can follow-up with orthopedic surgeon as outpatient. Continue effective pain management. Patient started to work with physical therapy with toe-touch weightbearing status. Fall precautions were maintained. Beach Expert seen and evaluated patient. Patient demonstrated asthmatic bronchitis versus COPD with multiple prior exacerbation. Supplemental oxygen provided [id number] and as needed. Supplemental oxygen titrated to keep pulse oximetry above 92%. Incentive spirometry provided while patient was in the bed. Patient was out of bed with the help of physical therapy. Aspiration precaution maintained. DVT prophylaxis provided. Beach Expert recommended outpatient pulmonary evaluation with PFT and screening CT of the chest to follow-up ground glass opacity previously seen. Medical Device Sales followed. Fall was mechanical, non-syncopal. Patient did not have any signs or symptoms of coronary syndrome or congestive heart failure. Patient had a history of cardiomyopathy, but last echocardiogram in the office showed ejection fraction of 40%. No significant valvular regurgitation at this time. Patient takes Lasix only once in a week . Medical Device Sales recommended close monitoring of volumes and cardiorenal parameters to assess the need for further Lasix, however at this time remain stable on weekly dose of Lasix. Patient was not on anticoagulation, because she had a left atrial appendage occlusive procedure performed number of years ago. Patient was continued on Cardizem CD and beta-kvng. Hold aspirin if any surgery planned. However no surgery was planned, and patient was continued with antiplatelet therapy with aspirin and statin. Troponin was repeated and was negative. Lipid panel was stable. Infectious disease doctor followed for management of antibiotics. Urine culture revealed E. coli. Antibiotic regimen optimized as per ID recommendation. IV antibiotic changed to oral prior to discharge to complete the course. Blood sugar was managed with oral anti-glycemics metformin and Januvia. Sliding scale of short acting insulin was on board as needed. Pain management was addressed, and pain was controlled. Bowel regimen instituted. Renal parameters and electrolytes were closely monitored, electrolytes ( magnesium ) corrected as needed, nephrotoxins were avoided. Hemoglobin and hematocrit were closely monitored. Anemia workup revealed evidence of iron deficiency anemia. Patient received IV Venofer. Given functional limitations after fall , patient required short-term rehabilitation at the [facility] facility. Placement was arranged to [facility] for short-term rehabilitation. Patient was stable for transfer to [facility] facility for short-term rehabilitation. FINAL DIAGNOSES: Comminuted right superior pubic rami fracture Nondisplaced right inferior pubic rami fracture Pelvic hematoma Asthmatic bronchitis COPD with multiply prior hospitalization Chronic CHF with ischemic cardiomyopathy (last ejection fraction 40%) Permanent atrial fibrillation, status post Watchman device Anemia of iron deficiency Diabetes mellitus type 2 Hypertension Non-syncopal fall UTI with E. coli Baseline bilateral knee arthritis DISCHARGE MEDICATIONS: See Medication Reconciliation list. DISCHARGE INSTRUCTIONS: Patient was discharged to [facility] facility for short-term rehabilitation. Follow-up with medical doctor at the facility. I have been assigned to dictate discharge summary for this account. I was not involved in the patient's management. Yolande Feng NP Aug 06, 2018 12:34
== END 2018-07-25 19:34 | DRG 536 ==
LOC: EDBD 12:03 → EMR 12:40 → 3E 14:34 → EDBEDREQ 15:50 → 2E 16:50
DX: S32.511A Fracture of superior rim of right pubis, initial encounter for closed fracture (principal); N39.0 Urinary tract infection, site not specified; S32.591A Other specified fracture of right pubis, initial encounter for closed fracture; W01.0XXA Fall on same level from slipping, tripping and stumbling without subsequent striking against object, initial encounter; Y92.008 Other place in unspecified non-institutional (private) residence as the place of occurrence of the external cause; J44.9 Chronic obstructive pulmonary disease, unspecified; I48.2 Chronic atrial fibrillation; I25.5 Ischemic cardiomyopathy; S30.0XXA Contusion of lower back and pelvis, initial encounter; Z95.810 Presence of automatic (implantable) cardiac defibrillator; E11.9 Type 2 diabetes mellitus without complications; M17.0 Bilateral primary osteoarthritis of knee; Z88.8 Allergy status to other drugs, medicaments and biological substances; Z79.82 Long term (current) use of aspirin; Z79.4 Long term (current) use of insulin; M54.30 Sciatica, unspecified side; M47.816 Spondylosis without myelopathy or radiculopathy, lumbar region; I11.0 Hypertensive heart disease with heart failure; I50.9 Heart failure, unspecified; B96.20 Unspecified Escherichia coli [E. coli] as the cause of diseases classified elsewhere; D50.9 Iron deficiency anemia, unspecified
CPT/HCPCS: 36415; 36600; 71045; 72192; 80048; 80053; 80061; 81003; 82803; 82962; 83036; 83540; 83550; 83735; 84484; 85025; 87086; 87181; 93005; 94640; 94664; 94760; 99285; J1815; J7620